=== PATIENT | male | born 1960 | race Caucasian/White ===

== ENCOUNTER 2017-11-21 13:59 | Observation (INO) | payer SELFPAY ==
[~2017-11-21] VITALS: Ht 177.8 cm; Wt 80.0 kg
--- NOTE | 2017-11-21 14:57 | PD ---
HPI Chief Complaint: Altered mental Time Seen by Provider: 14:49 Travel History International Travel<30 days: No Contact w/Intl Traveler<30days: No History of Present Illness HPI Patient is a 57-year-old male presents emergency department alcohol intoxication and altered mental status. According to EMS he was found behind a garbage dumpster altered by a passerby and they called 9 1. Patient's history is extremely limited by his level of intoxication on arrival. Later during his ER course the patient has started to sober and there is I can tell he recently came down from [place] and is currently living on the streets. Apparently has family in town and is trying to reconnect with them. He states he was drinking but does not know how he ended up behind a dumpster last night [facility] Past Medical History Medical History: Unable to Obtain Past Surgical History Surgical History: Unable to Obtain Social History Alcohol Use: Yes Tobacco Use: Yes Substance Use: Yes Allergies-Medications (Allergen,Severity, Reaction): Coded Allergies: No Known Allergies (Unverified , 11/21/17) Review of Systems ROS Limitations: Intoxication Physical Exam Exam Limitations: Intoxication Narrative GENERAL: Well-developed well-nourished, fairly well kempt in no obvious distress , heavily intoxicated SKIN: Focused skin assessment warm/dry. HEAD: Atraumatic. Normocephalic. EYES: Pupils equal and round. No scleral icterus. No injection or drainage. ENT: No nasal bleeding or discharge. Mucous membranes pink and moist. NECK: Trachea midline. No JVD. CARDIOVASCULAR: Regular rate and rhythm. No murmur appreciated. RESPIRATORY: No accessory muscle use. Clear to auscultation. Breath sounds equal bilaterally. GASTROINTESTINAL: Abdomen soft, non-tender, nondistended. Hepatic and splenic margins not palpable. MUSCULOSKELETAL: No obvious deformities. No clubbing. No cyanosis. No edema. NEUROLOGICAL: Awake and alert. Very slurred speech, moving all 4 extremities. PSYCHIATRIC: Unable to assess Data Data Last Documented VS Vital Signs Date Time Temp Pulse Resp B/P (MAP) Pulse Ox O2 Delivery O2 Flow Rate FiO2 11/21/17 17:46 94 18 180/101 (127) 93 Nasal Cannula 2.00 11/21/17 14:58 98.2 Orders Orders Electrocardiogram (11/21/17 14:53) Ammonia (11/21/17 14:53) Complete Blood Count With Diff (11/21/17 14:53) Comprehensive Metabolic Panel (11/21/17 14:53) Creatine Kinase (Cpk) (11/21/17 14:53) Prothrombin Time / Inr (Pt) (11/21/17 14:53) Act Partial Throm Time (Ptt) (11/21/17 14:53) Troponin I (11/21/17 14:53) Thyroid Stimulating Hormone (11/21/17 14:53) Urinalysis - C+S If Indicated (11/21/17 14:53) Lactic Acid Sepsis Protocol (11/21/17 14:53) Blood Culture (11/21/17 14:53) Chest, Single Ap (11/21/17 14:53) Blood Glucose (11/21/17 14:53) Ecg Monitoring (11/21/17 14:53) Iv Access Insert/Monitor (11/21/17 14:53) Oximetry (11/21/17 14:53) Drug Screen, Random Urine (11/21/17 14:53) Alcohol (Ethanol) (11/21/17 14:53) CKMB (11/21/17 15:05) CKMB% (11/21/17 15:05) Troponin I (11/21/17 17:34) Electrocardiogram (11/21/17 ) Sodium Chlor 0.9% 1000 Ml Inj (Ns 1000 M (11/21/17 18:30) Aspirin Chew (Aspirin Chew) (11/21/17 18:30) Admit Order (Ed Use Only) (11/21/17 ) Place In Observation (11/21/17 ) Vital Signs (Adult) Q4H (11/21/17 18:20) Dials Supervisor / Telemetry .CONTINUOUS (11/21/17 18:20) Diet Heart Healthy (11/21/17 Dinner) Sodium Chlor 0.9% 1000 Ml Inj (Ns 1000 M (11/21/17 18:20) Sodium Chloride 0.9% Flush (Ns Flush) (11/21/17 18:30) Sodium Chloride 0.9% Flush (Ns Flush) (11/21/17 21:00) Ondansetron Inj (Zofran Inj) (11/21/17 18:30) Creatine Kinase (Cpk) (11/21/17 21:00) Creatine Kinase (Cpk) (11/22/17 03:00) Troponin I (11/21/17 21:00) Troponin I (11/22/17 03:00) Electrocardiogram (11/21/17 21:00) Electrocardiogram (11/22/17 03:00) Enoxaparin Inj (Lovenox Inj) (11/21/17 21:00) Scd Bilateral/Knee High BRIAN.BID (11/21/17 18:20) Naloxone Inj (Narcan Inj) (11/21/17 18:30) Magnesium Hydroxide Liq (Milk Of Magnesi (11/21/17 18:30) Thiamine (Vit B1) (Vitamin B1) (11/22/17 09:00) Folic Acid (Folate) (11/22/17 09:00) Labs Laboratory Tests Test 11/21/17 15:05 11/21/17 17:35 White Blood Count 10.6 TH/MM3 Red Blood Count 4.56 MIL/MM3 Hemoglobin 14.3 GM/DL Hematocrit 41.9 % Mean Corpuscular Volume 91.8 FL Mean Corpuscular Hemoglobin 31.4 PG Mean Corpuscular Hemoglobin Concent 34.2 % Red Cell Distribution Width 14.6 % Platelet Count 288 TH/MM3 Mean Platelet Volume 6.6 FL Neutrophils (%) (Auto) 76.1 % Lymphocytes (%) (Auto) 14.8 % Monocytes (%) (Auto) 7.3 % Eosinophils (%) (Auto) 1.6 % Basophils (%) (Auto) 0.2 % Neutrophils # (Auto) 8.1 TH/MM3 Lymphocytes # (Auto) 1.6 TH/MM3 Monocytes # (Auto) 0.8 TH/MM3 Eosinophils # (Auto) 0.2 TH/MM3 Basophils # (Auto) 0.0 TH/MM3 CBC Comment DIFF FINAL Differential Comment Prothrombin Time 9.6 SEC Prothromb Time International Ratio 0.9 RATIO Activated Partial Thromboplast Time 26.6 SEC Urine Color LIGHT-YELLOW Urine Turbidity CLEAR Urine pH 5.5 Urine Specific [place] 1.004 Urine Protein NEG mg/dL Urine Glucose (UA) NEG mg/dL Urine Ketones NEG mg/dL Urine Occult Blood NEG Urine Nitrite NEG Urine Bilirubin NEG Urine Urobilinogen LESS THAN 2.0 MG/DL Urine Leukocyte Esterase NEG Urine RBC 1 /hpf Urine WBC LESS THAN 1 /hpf Microscopic Urinalysis Comment CATH-CULT NOT IND Blood Urea Nitrogen 8 MG/DL Creatinine 0.83 MG/DL Random Glucose 132 MG/DL Total Protein 7.7 GM/DL Albumin 4.1 GM/DL Calcium Level 8.6 MG/DL Alkaline Phosphatase 80 U/L Aspartate Amino Transf (AST/SGOT) 50 U/L Alanine Aminotransferase (ALT/SGPT) 44 U/L Total Bilirubin 0.3 MG/DL Sodium Level 143 MEQ/L Potassium Level 3.8 MEQ/L Chloride Level 106 MEQ/L Carbon Dioxide Level 23.8 MEQ/L Anion Gap 13 MEQ/L Estimat Glomerular Filtration Rate 95 ML/MIN Lactic Acid Level 2.3 mmol/L Ammonia 27 MCMOL/L Total Creatine Kinase 1210 U/L Creatine Kinase MB 6.9 NG/ML Creatine Kinase MB % 0.6 % Troponin I 0.18 NG/ML 0.19 NG/ML Thyroid Stimulating Hormone 3rd Gen 0.547 uIU/ML Urine Opiates Screen NEG Urine Barbiturates Screen NEG Urine Amphetamines Screen NEG Urine Benzodiazepines Screen POS Urine Cocaine Screen POS Urine Cannabinoids Screen NEG Ethyl Alcohol Level 415 MG/DL MDM Medical Decision Making Medical Screen Exam Complete: Yes Emergency Medical Condition: Yes Differential Diagnosis Altered mental status, intoxication, head injury, electrolyte abnormality, arrhythmia peer Narrative Course Patient was roomed in the emergency department, because of his altered mental status appears to be his alcohol, I have requested a CT scan of the head but the patient is declining this on multiple attempts. He is beginning to sober it appears he has recently arrived from [place] and is currently living on the streets. He is fairly well kempt and it appears that he is just become homeless. On workup of his altered mental status he does have an elevated troponin of 0.18. Patient does have cocaine positive urine. He states he had a little chest pain the other day but did not think much of it. His history is significantly limited by his level of intoxication. I recommended to him stay in the hospital and he is agreeable. Aspirin and normal saline were given in the emergency department. Discussed with Dr. Luna. Diagnosis Primary Impression: Elevated troponin Additional Impressions: Rhabdomyolysis Cocaine abuse Alcohol intoxication Admitting Information Admitting Physician Requests: Observation Condition: Stable Josh Purvis MD Nov 21, 2017 14:57
[2017-11-21 14:58] VITALS: BP 144/74; PULSE 94; RESP 24; TEMP 98.2; O2SAT 93
--- NOTE | 2017-11-21 15:33 | RADRPT ---
EXAM DATE/TIME: 11/21/2017 15:13 [place] COMPARISON: No previous studies available for comparison. INDICATIONS : ETOH- Shortness of breath. MEDICAL HISTORY : Unobtainable. SURGICAL HISTORY : Unobtainable. ENCOUNTER: Initial ACUITY: 1 day PAIN SCORE: Non-responsive. LOCATION: Bilateral chest FINDINGS: Bibasilar parenchymal changes with some consolidation on the right. The heart and pulmonary vasculari ty are normal. The portion of the bony skeleton visualized is unremarkable. CONCLUSION: Parenchymal changes on the right suspicious for an inflammatory process Yuan Bryan MD FACR on November 21, 2017 at 15:29 Board Certified Radiologist. This report was verified electronically.
[2017-11-21 15:44] LABS: LACTIC ACID SEPSIS PROTOCOL 2.3 mmol/L (0.4-2.0)
[2017-11-21 15:50] LABS: AUTOMATED NEUTROPHIL # 8.1 TH/MM3 (1.8-7.7); BASOPHIL % 0.2 % (0.0-2.0); EOSINOPHIL # 0.2 TH/MM3 (0-0.4); EOSINOPHIL % 1.6 % (0.0-4.0); HEMATOCRIT 41.9 % (39.0-51.0); HEMOGLOBIN 14.3 GM/DL (13.0-17.0); LYMPH % 14.8 % (9.0-44.0); LYMPHOCYTE # 1.6 TH/MM3 (1.0-4.8); MEAN CELL VOLUME 91.8 FL (80.0-100.0); MEAN CORPUSCULAR HEMOGLOBIN 31.4 PG (27.0-34.0); MEAN CORPUSCULAR HGB CONC 34.2 % (32.0-36.0); MEAN PLATELET VOLUME 6.6 FL (7.0-11.0); MONO % 7.3 % (0.0-8.0); MONOCYTE # 0.8 TH/MM3 (0-0.9); NEUT % 76.1 % (16.0-70.0); PLATELET COUNT 288 TH/MM3 (150-450); RED BLOOD COUNT 4.56 MIL/MM3 (4.50-5.90); RED CELL DISTRIBUTION WIDTH 14.6 % (11.6-17.2); WHITE BLOOD COUNT 10.6 TH/MM3 (4.0-11.0)
[2017-11-21 15:56] LABS: BILIRUBIN, URINE NEG (NEG); BLOOD, URINE NEG (NEG); GLUCOSE,URINE NEG (NEG); KETONE, URINE NEG (NEG); NITRITE,URINE NEG (NEG); PH, URINE 5.5 (5.0-8.5); URINE COLOR LIGHT-YELLOW (YELLW/STRAW); URINE LEUKOCYTE ESTERASE NEG (NEG)
[2017-11-21 15:57] LABS: INTERNATIONAL NORMALIZED RATIO 0.9 RATIO; PROTHROMBIN TIME - PATIENT 9.6 SEC (9.8-11.6)
[2017-11-21 16:07] LABS: ALBUMIN 4.1 GM/DL (3.4-5.0); AST (GOT) 50 U/L (15-37); BICARBONATE 23.8 MEQ/L (21.0-32.0); BLOOD UREA NITROGEN 8 MG/DL (7-18); CALCIUM 8.6 MG/DL (8.5-10.1); CHLORIDE 106 MEQ/L (98-107); CREATININE 0.83 MG/DL (0.60-1.30); GLOMERULAR FILTRATION RATE 95 ML/MIN (>89); GLUCOSE,RANDOM 132 MG/DL (74-106); SODIUM (NA) 143 MEQ/L (136-145)
[2017-11-21 16:22] LABS: ALKALINE PHOSPHATASE 80 U/L (45-117); ALT (GPT) 44 U/L (12-78); TOTAL BILIRUBIN ADULT 0.3 MG/DL (0.2-1.0); TOTAL PROTEIN 7.7 GM/DL (6.4-8.2); TROPONIN I 0.18 NG/ML (0.02-0.05)
[2017-11-21 17:46] VITALS: BP 180/101; PULSE 94; RESP 18; O2SAT 93
[2017-11-21] MEDS ORDERED: SODIUM CHLOR 0.9% 1000 ML INJ 1,000 ML IV ONE (18:30)
[2017-11-21] MEDS ORDERED: NALOXONE HCL 0.4 MG/ML AMP IV PUSH PRN (18:30)
[2017-11-21] MEDS ORDERED: MAGNESIUM HYDROXIDE SUSP 30 ML CUP PO PRN (18:30)
[2017-11-21] MEDS ORDERED: SODIUM CHLORIDE 0.9% FLUSH 10 ML FLUSH IV FLUSH PRN (18:30)
[2017-11-21] MEDS ORDERED: ONDANSETRON HCL 4 MG/2 ML VIAL IVP PRN (18:30)
[2017-11-21] MEDS ORDERED: ASPIRIN 81 MG CHEW TAB CHEW ONE (18:30)
--- NOTE | 2017-11-21 18:46 | HHI.HP ---
[facility] Unknown Admission Diagnosis Elevated Troponin. Diagnoses: (1) Alcohol intoxication Diagnosis: Principal (2) Rhabdomyolysis Diagnosis: Principal (3) Elevated troponin Diagnosis: Principal (4) Cocaine abuse Diagnosis: Principal Travel History International Travel<30 Days: No Contact w/Intl Traveler <30 Da: No Traveled to Known Affected Are: No History of Present Illness Mr. Burns is a 57-year-old male. He came into the hospital intoxicated. Lab testing shows that he is also positive for cocaine. Further blood workup shows an elevated troponin. The patient denies any chest pain. Lactic acidosis is present. Etiology for his lactic acidosis and rhabdomyolysis may be related to his degree of intoxication but he could have also been following. Elevated troponin is likely a false elevation and not related to cardiac etiology, however the enzymes will be trended. When patient is seen he is not complaining of any specific problem. He is somewhat inebriated and not in good condition to discharge at this point anyhow. Review of Systems ROS Limitations: Intoxication, Altered Mental Status Constitutional: DENIES: Fatigue, Fever, Chills Eyes: DENIES: Blurred vision, Diplopia, Eye inflammation Ears, nose, mouth, throat: DENIES: Tinnitus, Hearing loss, Vertigo Respiratory: DENIES: Cough, Wheezing, Shortness of breath Cardiovascular: DENIES: Chest pain, Palpitations, Syncope Gastrointestinal: DENIES: Abdominal pain, Black stools Musculoskeletal: DENIES: Joint pain, Muscle aches, Stiffness Integumentary: DENIES: Abnormal pigmentation, Nail changes, Pruritus, Rash Hematologic/lymphatic: DENIES: Bruising, Lymphadenopathy Immunologic/allergic: DENIES: Eczema, Urticaria Neurologic: DENIES: Abnormal gait, Headache, Paresthesias Psychiatric: DENIES: Anxiety, Confusion, Hallucinations Past Family Social History Past Medical History Patient denies any past medical history, he says he takes no medications History of alcohol abuse History of drug abuse Past Surgical History No previous history of surgeries, per patient Reported Medications None Allergies: Coded Allergies: No Known Allergies (Unverified , 11/21/17) Family History Coronary artery disease in patient's father Social History Nicotine abuse Alcohol abuse Cocaine abuse Physical Exam Vital Signs Vital Signs Date Time Temp Pulse Resp B/P (MAP) Pulse Ox O2 Delivery O2 Flow Rate FiO2 11/21/17 17:46 94 18 180/101 (127) 93 Nasal Cannula 2.00 11/21/17 14:58 98.2 94 24 144/74 (97) 93 Nasal Cannula 2.00 11/21/17 14:58 88 Room Air Physical Exam GENERAL: NAD, A&Ox3, inebriated HEAD: Normocephalic. NECK: Supple, trachea midline. No lymphadenopathy. EYES: No scleral icterus. No injection or drainage. CARDIOVASCULAR: Regular rate and rhythm without murmurs, gallops, or rubs. RESPIRATORY: Breath sounds equal bilaterally. No accessory muscle use. GASTROINTESTINAL: Abdomen soft, non-tender, nondistended. MUSCULOSKELETAL: No cyanosis, or edema. SKIN: Warm and dry. NEURO: No focal neurological deficitis. Laboratory Laboratory Tests Test 11/21/17 15:05 11/21/17 17:35 White Blood Count 10.6 Red Blood Count 4.56 Hemoglobin 14.3 Hematocrit 41.9 Mean Corpuscular Volume 91.8 Mean Corpuscular Hemoglobin 31.4 Mean Corpuscular Hemoglobin Concent 34.2 Red Cell Distribution Width 14.6 Platelet Count 288 Mean Platelet Volume 6.6 Neutrophils (%) (Auto) 76.1 Lymphocytes (%) (Auto) 14.8 Monocytes (%) (Auto) 7.3 Eosinophils (%) (Auto) 1.6 Basophils (%) (Auto) 0.2 Neutrophils # (Auto) 8.1 Lymphocytes # (Auto) 1.6 Monocytes # (Auto) 0.8 Eosinophils # (Auto) 0.2 Basophils # (Auto) 0.0 CBC Comment DIFF FINAL Differential Comment Prothrombin Time 9.6 Prothromb Time International Ratio 0.9 Activated Partial Thromboplast Time 26.6 Urine Color LIGHT-YELLOW Urine Turbidity CLEAR Urine pH 5.5 Urine Specific [place] 1.004 Urine Protein NEG Urine Glucose (UA) NEG Urine Ketones NEG Urine Occult Blood NEG Urine Nitrite NEG Urine Bilirubin NEG Urine Urobilinogen LESS THAN 2.0 Urine Leukocyte Esterase NEG Urine RBC 1 Urine WBC LESS THAN 1 Microscopic Urinalysis Comment CATH-CULT NOT IND Blood Urea Nitrogen 8 Creatinine 0.83 Random Glucose 132 Total Protein 7.7 Albumin 4.1 Calcium Level 8.6 Alkaline Phosphatase 80 Aspartate Amino Transf (AST/SGOT) 50 Alanine Aminotransferase (ALT/SGPT) 44 Total Bilirubin 0.3 Sodium Level 143 Potassium Level 3.8 Chloride Level 106 Carbon Dioxide Level 23.8 Anion Gap 13 Estimat Glomerular Filtration Rate 95 Lactic Acid Level 2.3 Ammonia 27 Total Creatine Kinase 1210 Creatine Kinase MB 6.9 Creatine Kinase MB % 0.6 Troponin I 0.18 0.19 Thyroid Stimulating Hormone 3rd Gen 0.547 Urine Opiates Screen NEG Urine Barbiturates Screen NEG Urine Amphetamines Screen NEG Urine Benzodiazepines Screen POS Urine Cocaine Screen POS Urine Cannabinoids Screen NEG Ethyl Alcohol Level 415 Date/Time Source Procedure Growth Status 11/21/17 15:05 Blood Peripheral Aerobic Blood Culture Pending Received 11/21/17 15:05 Blood Peripheral Anaerobic Blood Culture Pending Received Result Diagram: 11/21/17 1505 11/21/17 1505 Mustapha VTE Risk Assessment Caprini VTE Risk Assessment: No/Low Risk (score <= 1) Caprini Risk Assessment Model Point Value = 1 Point Value = 2 Point Value = 3 Point Value = 5 Age 41-60 Minor surgery BMI > 25 kg/m2 Swollen legs Varicose veins or History of unexplained or recurrent spontaneous Oral contraceptives or hormone replacement Sepsis (< 1 month) Serious lung disease, including pneumonia (< 1 month) Abnormal pulmonary function Acute myocardial infarction Congestive heart failure (< 1 month) History of inflammatory bowel disease Medical patient at bed rest Age 61-74 Arthroscopic surgery Major open surgery (> 45 min) Laparoscopic surgery (> 45 min) Malignancy Confined to bed (> 72 hours) Immobilizing plaster cast Central venous access Age >= 75 History of VTE Family history of VTE Factor V Leiden Prothrombin [id number] Lupus anticoagulant Anticardiolipin antibodies Elevated serum homocysteine Heparin-induced thrombocytopenia Other congenital or acquired thrombophilia Stroke (< 1 month) Elective arthroplasty Hip, pelvis, or leg fracture Acute spinal cord injury (< 1 month) Prophylaxis Regimen Total Risk Factor Score Risk Level Prophylaxis Regimen 0-1 Low Early ambulation 2 Moderate Order ONE of the following: *Sequential Compression Device (SCD) *Heparin 5000 units SQ BID 3-4 Higher Order ONE of the following medications: *Heparin 5000 units SQ TID *Enoxaparin/Lovenox 40 mg SQ daily (WT < 150 kg, CrCl > 30 mL/min) *Enoxaparin/Lovenox 30 mg SQ daily (WT < 150 kg, CrCl > 10-29 mL/min) *Enoxaparin/Lovenox 30 mg SQ BID (WT < 150 kg, CrCl > 30 mL/min) AND/OR *Sequential Compression Device (SCD) 5 or more Highest Order ONE of the following medications: *Heparin 5000 units SQ TID (Preferred with Epidurals) *Enoxaparin/Lovenox 40 mg SQ daily (WT < 150 kg, CrCl > 30 mL/min) *Enoxaparin/Lovenox 30 mg SQ daily (WT < 150 kg, CrCl > 10-29 mL/min) *Enoxaparin/Lovenox 30 mg SQ BID (WT < 150 kg, CrCl > 30 mL/min) AND *Sequential Compression Device (SCD) Assessment and Plan Problem List: (1) Cocaine abuse ICD Code: F14.10 - Cocaine abuse, uncomplicated (2) Elevated troponin ICD Code: R74.8 - Abnormal levels of other serum enzymes (3) Rhabdomyolysis ICD Code: M62.82 - Rhabdomyolysis (4) Alcohol intoxication ICD Code: F10.929 - Alcohol use, unspecified with intoxication, unspecified Assessment and Plan 57-year-old male admitted secondary to rhabdomyolysis in alcohol toxicity with elevated troponin Elevated troponin Follow troponin If a downward trend is present no cardiac workup needed If an upward trend is present pursue further cardiac workup and consult cardiology Rhabdomyolysis Lactic acidosis Etiology is from alcohol versus fall, patient reports no pain of trauma IV hydration overnight Re-evaluate CK in a.m. Cocaine abuse Nicotine abuse Alcohol abuse Alcohol intoxication Folic acid Thiamine Not a good candidate for NicoDerm at this point Follow clinically Avoid beta blockers Monitor for delirium tremens DVT prophylaxis Cristino Peraza MD Nov 21, 2017 18:46
[2017-11-21 19:27] VITALS: BP 151/84; PULSE 85; RESP 16; O2SAT 95
[2017-11-21] MEDS: SODIUM CHLOR 0.9% 1000 ML INJ 1,000 ML IV SCH (20:49)
[2017-11-21 21:00] VITALS: BP 137/69; PULSE 88; RESP 19; TEMP 96.4; O2SAT 92
[2017-11-21] MEDS ORDERED: SODIUM CHLORIDE 0.9% FLUSH 10 ML FLUSH IV FLUSH SCH (21:00)
[2017-11-21] MEDS ORDERED: ENOXAPARIN SODIUM 40 MG/0.4 ML SYRINGE SQ SCH (21:00)
[2017-11-21 22:51] LABS: TROPONIN I 0.19 NG/ML (0.02-0.05)
[2017-11-22 00:14] VITALS: BP 162/80; PULSE 91; RESP 18; TEMP 96.2; O2SAT 93
[2017-11-22 04:00] VITALS: PULSE 81
[2017-11-22 04:29] VITALS: BP 143/63; PULSE 80; RESP 18; TEMP 98.6; O2SAT 93
[2017-11-22] MEDS: SODIUM CHLOR 0.9% 1000 ML INJ 1,000 ML IV SCH (04:33)
[2017-11-22 04:47] LABS: TROPONIN I 0.21 NG/ML (0.02-0.05)
[2017-11-22 07:34] VITALS: PULSE 67
[2017-11-22 07:43] VITALS: BP 157/83; PULSE 73; RESP 18; TEMP 97.7; O2SAT 93
[2017-11-22] MEDS ORDERED: THIAMINE HCL 100 MG TAB PO SCH (09:00)
[2017-11-22] MEDS ORDERED: FOLIC ACID 1 MG TAB PO SCH (09:00)
[2017-11-22] MEDS ORDERED: THIAMINE HCL 100 MG TAB PO ONE (09:15)
[2017-11-22] MEDS ORDERED: THIA100 PO (09:29)
--- NOTE | 2017-11-22 09:29 | HHI.DCPOC ---
Discharge Care Plan Diagnosis: (1) Alcohol intoxication (2) Cocaine abuse (3) Rhabdomyolysis Goals to Promote Your Health * To prevent worsening of your condition and complications * To maintain your health at the optimal level Directions to Meet Your Goals Take your medications as prescribed Follow your dietary instruction Follow activity as directed Keep your appointments as scheduled Take your immunizations and boosters as scheduled If your symptoms worsen call your PCP, if no PCP go to Urgent Care Center or Emergency Room Smoking is Dangerous to Your Health. Avoid second hand smoke Call the 24-hour hour crisis hotline for domestic abuse at [facility] Dorsey PA-C Nov 22, 2017 9:29 am
--- NOTE | 2017-11-22 09:30 | HHI.PR ---
Subjective Remarks Follow up for intoxication, cocaine use, elevated CPK and troponin. The patient is seen ambulating the hallways this morning, requesting to be discharged. He does not have recollection leading up to his admission. He states he remembers getting a bottle of gin, and probably got a 2nd bottle, then probably "over did it" with his drinking. He admits to using cocaine at some point, states his friend had some and "it tasted like sugar". He admits to xanax use 1 week ago. He denies any chest pain, palpitations, shortness of breath, muscle aches, or abdominal complaints. He is tolerating oral intake. He wants to go home. He states his mom will come pick him up. He is awake, alert, oriented to person, hospital in [place], October 2017, and president Kapil. He reports intermittent sobriety throughout his adult life, but started drinking again since he arrived from [place]. Thoroughly discussed cessation from all alcohol and drugs, patient says he is going to try to cut back. Denies any current withdrawal or tremors. Objective Vitals Vital Signs Date Time Temp Pulse Resp B/P (MAP) Pulse Ox O2 Delivery O2 Flow Rate FiO2 11/22/17 07:43 97.7 73 18 157/83 (107) 93 11/22/17 07:34 67 11/22/17 04:29 98.6 80 18 143/63 (89) 93 11/22/17 04:00 81 11/22/17 00:14 96.2 91 18 162/80 (107) 93 11/21/17 21:00 96.4 88 19 137/69 (91) 92 11/21/17 20:11 11/21/17 19:27 85 16 151/84 (106) 95 Nasal Cannula 2.00 11/21/17 17:46 94 18 180/101 (127) 93 Nasal Cannula 2.00 11/21/17 14:58 98.2 94 24 144/74 (97) 93 Nasal Cannula 2.00 11/21/17 14:58 88 Room Air I/O 11/21/17 11/21/17 11/21/17 11/22/17 11/22/17 11/22/17 07:00 15:00 23:00 07:00 15:00 23:00 Intake Total 0 ml Output Total 600 ml Balance -600 ml Intake Oral 0 ml Output Urine Total 600 ml # Bowel Movements 4 Result Diagram: 11/21/17 1505 11/21/17 1505 Imaging Last Impressions Chest X-Ray 11/21/17 1453 Signed Impressions: Service Date/Time: Tuesday, November 21, 2017 15:13 - CONCLUSION: Parenchymal changes on the right suspicious for an inflammatory process Yuan Bryan MD FACR Objective Remarks GENERAL: Well-nourished, well-developed middle aged male patient in NAD. SKIN: Warm and dry. No rash. HEENT: Normocephalic. Atraumatic.Pupils equal and round. Mucous membranes pink and moist. CARDIOVASCULAR: Regular rate and rhythm. No murmur appreciated. RESPIRATORY: No accessory muscle use. Clear to auscultation. Breath sounds equal bilaterally. GASTROINTESTINAL: Abdomen soft, non-tender, nondistended. Normoactive bowel sounds x4. MUSCULOSKELETAL: No obvious deformities. Extremities without clubbing, cyanosis , or edema. NEUROLOGICAL: Awake and alert. No obvious cranial nerve deficits. Motor grossly within normal limits. 5/5 muscle strength in bilateral upper and lower extremities. Normal speech. PSYCHIATRIC: Appropriate mood and affect; insight and judgment normal. A/P Problem List: (1) Cocaine abuse ICD Code: F14.10 - Cocaine abuse, uncomplicated (2) Elevated troponin ICD Code: R74.8 - Abnormal levels of other serum enzymes (3) Rhabdomyolysis ICD Code: M62.82 - Rhabdomyolysis (4) Alcohol intoxication ICD Code: F10.929 - Alcohol use, unspecified with intoxication, unspecified Assessment and Plan 49-year-old male with history of alcohol abuse presents intoxicated with positive cocaine and benzos, admitted to observation secondary to intoxication and unsafe discharge. Elevated troponin/CPK, Mild Rhabdomyolysis, Lactic Acidosis: Patient with no complaints of chest pain. CK-MB% wnl. Likely secondary to intoxication and cocaine abuse. -Given IV fluid hydration -CK trended down, 1210 --> 869 -Encouraged to continue oral hydration after discharge Alcohol Abuse/Polysubstance Abuse: patient presented intoxicated with etoh level 415, and UDS positive for cocaine and benzos -counseled on cessation from all drugs and alcohol -thiamine/folate/MV -monitor for withdrawal -librium prn DVT Prophylaxis: Lovenox Discharge Planning Discharge patient to home Condition on discharge: Stable Regular Diet as tolerated Ad Desirae activity Rx written: thiamine Follow-up with primary care physician and drug/alcohol rehab at [facility] PA-[facility] Nov 22, 2017 9:30 am
--- NOTE | 2017-11-23 00:25 | EKG ---
Date Performed: 11/21/2017 Time Performed: 17:51:02 PTAGE: 57 years EKG: Sinus rhythm INCOMPLETE RIGHT BUNDLE BRANCH BLOCK BORDERLINE ECG PREVIOUS TRACING : 11/21/2017 15.10 DOCTOR: Gertrude White Interpretating Date/Time 11/23/2017 00:12:55
--- NOTE | 2017-11-23 00:29 | EKG ---
Date Performed: 11/21/2017 Time Performed: 15:10:09 PTAGE: 57 years EKG: Sinus rhythm INCOMPLETE RIGHT BUNDLE BRANCH BLOCK BORDERLINE ECG NO PREVIOUS TRACING DOCTOR: Gertrude White Interpretating Date/Time 11/23/2017 00:14:36
== END 2017-11-22 10:04 | disposition home or self-care (01) ==
LOC: NEPC 13:59 → NEDA 18:23 → NEPHCDU 20:24
PROVIDERS: ADMIT Internal Medicine; ATTEND Internal Medicine
DX: F10.129 Alcohol abuse with intoxication, unspecified (principal); M62.82 Rhabdomyolysis; R74.8 Abnormal levels of other serum enzymes; I45.10 Unspecified right bundle-branch block; F14.10 Cocaine abuse, uncomplicated; E87.2 Acidosis; F17.200 Nicotine dependence, unspecified, uncomplicated; Y90.8 Blood alcohol level of 240 mg/100 ml or more; Z59.0 Homelessness
CPT/HCPCS: 71045; 80053; 80307; 81001; 82140; 82550; 82552; 83605; 84443; 84484; 85025; 85610; 85730; 87040; 93005; 96361; 96374; 99285; G0378; J1650; J2405; J7030

== ENCOUNTER 2017-11-25 17:02 | Inpatient (IN) | payer SELFPAY ==
[~2017-11-25] VITALS: Ht 174 cm; Wt 85.2 kg
[~2017-11-25 17:02] MED LIST: THIA100 PO
--- NOTE | 2017-11-25 17:18 | PD ---
HPI Chief Complaint: Skin Problem Time Seen by Provider: 17:17 Travel History International Travel<30 days: No Contact w/Intl Traveler<30days: No Traveled to known affect area: No History of Present Illness HPI 57-year-old male came to the emergency room brought by EMS as a De Jesus act. Patient is intoxicated. He was found on the ground intoxicated by the police. Patient while being picked up by the EMS mentioned that he was bitten by a cat 2 weeks ago on his right hand middle finger. Patient says he has been sober for 8 months but just drank today and drank one fifth of gin. The patient was hypoxic with oxygen saturation in the 80s. Heart rate was 105. Patient is moderately intoxicated and limited in giving history. He seems homeless. [facility] Past Medical History Narrative Medical List of his past medical, surgical, social and family history is reviewed from the nursing note. Blood Disorders: No Anxiety: Yes Depression: Yes Heart Rhythm Problems: No Cancer: No Cardiovascular Problems: Yes High Cholesterol: No Chest Pain: Yes Congestive Heart Failure: No Endocrine: No Genitourinary: Yes (FREQUENCY) Immune Disorder: No Musculoskeletal: No (RT WRIST) Neurologic: Yes (GRAND MAL SEIZURES) Psychiatric: Yes Reproductive: No Respiratory: No Social History Alcohol Use: Yes Tobacco Use: Yes Substance Use: Yes Allergies-Medications (Allergen,Severity, Reaction): Coded Allergies: Sulfa (Sulfonamide Antibiotics) (Verified Allergy, Severe, Hives, 11/26/17) Comments No known drug allergies Reported Meds & Prescriptions Reported Meds & Active Scripts Active No Active Prescriptions or Reported Medications Narrative Medication List of his home medications reviewed from the nursing note Review of Systems ROS Limitations: Intoxication Except as stated in HPI: all other systems reviewed are Neg Skin: Positive Rash Physical Exam Narrative GENERAL: Intoxicated, answering questions and following commands SKIN: Focused skin assessment warm/dry. Right hand middle finger on the dorsal aspect has a puncture wound with a swollen finger. The dorsum of the hand is swollen. Significant arthritis at the carpometacarpal junction with some ulnar deviation. Multiple scabs on both feet HEAD: Atraumatic. Normocephalic. EYES: Pupils equal and round. No scleral icterus. No injection or drainage. ENT: No nasal bleeding or discharge. Mucous membranes pink and moist. NECK: Trachea midline. No JVD. CARDIOVASCULAR: Regular rate and rhythm. No murmur appreciated. RESPIRATORY: No accessory muscle use. Coarse rhonchi bilaterally GASTROINTESTINAL: Abdomen soft, non-tender, nondistended. Hepatic and splenic margins not palpable. MUSCULOSKELETAL: No obvious deformities. No clubbing. No cyanosis. No edema. NEUROLOGICAL: Intoxicated. No obvious cranial nerve deficits. Motor grossly within normal limits. Slurred speech. PSYCHIATRIC: Appropriate mood and affect; insight and judgment normal. Data Data Last Documented VS Vital Signs Date Time Temp Pulse Resp B/P (MAP) Pulse Ox O2 Delivery O2 Flow Rate FiO2 11/25/17 19:28 104 18 159/95 (116) 95 Room Air 11/25/17 17:39 98.1 11/25/17 17:39 2.00 Orders Orders Sepsis Workup Initiated (11/25/17 ) Complete Blood Count With Diff (11/25/17 17:22) Comprehensive Metabolic Panel (11/25/17 17:22) Lactic Acid Sepsis Protocol (11/25/17 17:22) Urinalysis - C+S If Indicated (11/25/17 17:22) Blood Culture (11/25/17 17:22) Chest, Single Ap (11/25/17 17:22) Blood Glucose (11/25/17 17:22) Ecg Monitoring (11/25/17 17:22) Iv Access Insert/Monitor (11/25/17 17:22) Oximetry (11/25/17 17:22) Oxygen Administration (11/25/17 17:22) Sodium Chlor 0.9% 1000 Ml Inj (Ns 1000 M (11/25/17 17:22) Sodium Chlor 0.9% 1000 Ml Inj (Ns 1000 M (11/25/17 17:22) Sodium Chlor 0.9% 1000 Ml Inj (Ns 1000 M (11/25/17 17:22) Alcohol (Ethanol) (11/25/17 17:22) Hand, Complete (Oif0llp) (11/25/17 ) Ct Hand W Iv Contrast (11/25/17 ) Piperacil-Tazo 4.5 Gm Premix (Zosyn 4.5 (11/25/17 18:45) Vancomycin Inj (Vancomycin Inj) (11/25/17 18:45) Urine Culture (11/25/17 19:15) Iohexol 350 Inj (Omnipaque 350 Inj) (11/25/17 20:01) Admit Order (Ed Use Only) (11/25/17 20:10) Vancomycin Consult Pharmacy (Vancomycin (11/25/17 20:15) Cefepime Inj (Maxipime Inj) (11/26/17 09:00) Vital Signs (Adult) Q4H (11/25/17 20:09) Bedside Glucose BRIAN.CSUGAR (11/25/17 20:09) Intake + Output BRIAN.QSHIFT (11/25/17 20:09) Alcohol Withdrawal Asmt-Ciwa Q4HX18 (11/25/17 20:09) ^ Seizure Precautions (11/25/17 20:09) Folic Acid (Folate) (11/26/17 09:00) Thiamine (Vit B1) (Vitamin B1) (11/26/17 09:00) Multivitamins-Minerals Therap (Theragran (11/26/17 09:00) Consult Cm-Etoh Abuse Dc Plan (11/25/17 ) Flumazenil Inj (Romazicon Inj) (11/25/17 20:15) Lorazepam (Ativan) (11/25/17 20:15) Lorazepam Inj (Ativan Inj) (11/25/17 20:15) Lorazepam (Ativan) (11/25/17 20:15) Lorazepam Inj (Ativan Inj) (11/25/17 20:15) Lorazepam Inj (Ativan Inj) (11/25/17 20:15) Lorazepam Inj (Ativan Inj) (11/25/17 20:15) Haloperidol Inj (Haldol Inj) (11/25/17 20:15) Thiamine Inj (Thiamine Inj) (11/25/17 23:00) Admit To Inpatient (11/25/17 ) Vital Signs (Adult) Q4H (11/25/17 20:09) Activity Oob With Assistance (11/25/17 20:09) Oracle Application Consultant / Telemetry .CONTINUOUS (11/25/17 20:09) Intake + Output BRIAN.QSHIFT (11/25/17 20:09) Diet Regular Basic (11/26/17 Breakfast) Sodium Chlor 0.9% 1000 Ml Inj (Ns 1000 M (11/25/17 20:09) Sodium Chloride 0.9% Flush (Ns Flush) (11/25/17 20:15) Sodium Chloride 0.9% Flush (Ns Flush) (11/25/17 21:00) Ondansetron Inj (Zofran Inj) (11/25/17 20:15) Comprehensive Metabolic Panel (11/26/17 06:00) Complete Blood Count With Diff (11/26/17 06:00) Case Management Consult (11/25/17 20:09) Scd Bilateral/Knee High BRIAN.BID (11/25/17 20:09) Javier Bilateral/Knee High BRIAN.QSHIFT (11/25/17 20:12) Acetaminophen (Tylenol) (11/25/17 20:15) Oxycodone (Roxicodone) (11/25/17 20:15) Oxycodone (Roxicodone) (11/25/17 20:15) Docusate Sodium-Senna (Lucie-Colace) (11/25/17 21:00) Magnesium Hydroxide Liq (Milk Of Magnesi (11/25/17 20:15) Sennosides (Senokot) (11/25/17 20:15) Bisacodyl Supp (Dulcolax Supp) (11/25/17 20:15) Lactulose Liq (Lactulose Liq) (11/25/17 20:15) Inpatient Certification (11/25/17 ) Labs Laboratory Tests Test 11/25/17 18:00 11/25/17 19:15 White Blood Count 14.1 TH/MM3 Red Blood Count 4.46 MIL/MM3 Hemoglobin 13.9 GM/DL Hematocrit 40.5 % Mean Corpuscular Volume 90.8 FL Mean Corpuscular Hemoglobin 31.1 PG Mean Corpuscular Hemoglobin Concent 34.3 % Red Cell Distribution Width 14.4 % Platelet Count 199 TH/MM3 Mean Platelet Volume 6.7 FL Neutrophils (%) (Auto) 93.4 % Lymphocytes (%) (Auto) 2.5 % Monocytes (%) (Auto) 4.0 % Eosinophils (%) (Auto) 0.0 % Basophils (%) (Auto) 0.1 % Neutrophils # (Auto) 13.1 TH/MM3 Lymphocytes # (Auto) 0.4 TH/MM3 Monocytes # (Auto) 0.6 TH/MM3 Eosinophils # (Auto) 0.0 TH/MM3 Basophils # (Auto) 0.0 TH/MM3 CBC Comment DIFF FINAL Differential Comment Blood Urea Nitrogen 21 MG/DL Creatinine 0.93 MG/DL Random Glucose 261 MG/DL Total Protein 7.5 GM/DL Albumin 3.5 GM/DL Calcium Level 8.0 MG/DL Alkaline Phosphatase 80 U/L Aspartate Amino Transf (AST/SGOT) 74 U/L Alanine Aminotransferase (ALT/SGPT) 50 U/L Total Bilirubin 0.4 MG/DL Sodium Level 141 MEQ/L Potassium Level 3.8 MEQ/L Chloride Level 101 MEQ/L Carbon Dioxide Level 25.2 MEQ/L Anion Gap 15 MEQ/L Estimat Glomerular Filtration Rate 83 ML/MIN Lactic Acid Level 4.8 mmol/L Ethyl Alcohol Level 363 MG/DL Urine Color YELLOW Urine Turbidity HAZY Urine pH 5.5 Urine Specific [place] 1.020 Urine Protein 100 mg/dL Urine Glucose (UA) 300 mg/dL Urine Ketones 40 mg/dL Urine Occult Blood LARGE Urine Nitrite NEG Urine Bilirubin NEG Urine Urobilinogen LESS THAN 2.0 MG/DL Urine Leukocyte Esterase NEG Urine RBC LESS THAN 1 /hpf Urine WBC 4 /hpf Urine Bacteria OCC /hpf Urine Hyaline Casts 10 /lpf Urine Mucus FEW /lpf Microscopic Urinalysis Comment CATH-CULTURE IND MDM Medical Decision Making Medical Screen Exam Complete: Yes Emergency Medical Condition: Yes Medical Record Reviewed: Yes Interpretation(s) Twelve-lead EKG was reviewed by me. Normal sinus rhythm, left axis deviation, right bundle branch block, tachycardia. Heart rate of 101 bpm. Differential Diagnosis Sepsis, pneumonia, cellulitis, acute alcohol intoxication Narrative Course 7:12 PM patient was given IV fluid bolus as per sepsis protocol. Chest x-ray is suggestive of right inferior lobe infiltrate. X-ray of the hand is negative for any osteomyelitis. CBC shows leukocytosis with left shift. Awaiting for chemistry and lactic acid to come back. It is getting IV Zosyn and vancomycin as per sepsis protocol. He will require admission eventually. Critical Care Narrative Aggregate critical care time was 45 minutes. Time to perform other separately billable procedures was not included in the critical care time. My time did not include minutes spent treating any other patients simultaneously or on activities that did not directly contribute to the patient's treatment. The services I provided to this patient were to treat and/or prevent clinically significant deterioration that could result in: Sepsis, sepsis protocol I provided critical care services requiring my management, as noted below: Chart data review, documentation time, medication orders and management, vital sign assessments/reviewing monitor data, ordering and reviewing lab tests, ordering and interpreting/reviewing x-rays and diagnostic studies, care of the patient and discussion of the patient with the admitting physicians. Procedures EKG Prior to Arrival: No Diagnosis Primary Impression: Sepsis Qualified Codes: A41.9 - Sepsis, unspecified organism Additional Impressions: Pneumonia Qualified Codes: J18.1 - Lobar pneumonia, unspecified organism Alcohol intoxication Qualified Codes: F10.929 - Alcohol use, unspecified with intoxication, unspecified Cellulitis Qualified Codes: L03.113 - Cellulitis of right upper limb Cat bite Qualified Codes: W55.01XA - Bitten by cat, initial encounter Hypoxia Admitting Information Admitting Physician Requests: Admit Scripts No Active Prescriptions or Reported Meds Ayaan Yanes MD Nov 25, 2017 17:18
[2017-11-25] MEDS ORDERED: SODIUM CHLOR 0.9% 1000 ML INJ 400 ML IV ONE (17:22)
[2017-11-25] MEDS ORDERED: SODIUM CHLOR 0.9% 1000 ML INJ 1,000 ML IV ONE ×2 (17:22)
[2017-11-25 17:37] VITALS: BP 159/86; PULSE 106; RESP 24; TEMP 98.1; O2SAT 86
[2017-11-25 17:39] VITALS: BP 159/86; PULSE 106; RESP 24; TEMP 98.1; O2SAT 86
[2017-11-25 18:33] LABS: AUTOMATED NEUTROPHIL # 13.1 TH/MM3 (1.8-7.7); BASOPHIL % 0.1 % (0.0-2.0); HEMATOCRIT 40.5 % (39.0-51.0); HEMOGLOBIN 13.9 GM/DL (13.0-17.0); LYMPH % 2.5 % (9.0-44.0); LYMPHOCYTE # 0.4 TH/MM3 (1.0-4.8); MEAN CELL VOLUME 90.8 FL (80.0-100.0); MEAN CORPUSCULAR HEMOGLOBIN 31.1 PG (27.0-34.0); MEAN CORPUSCULAR HGB CONC 34.3 % (32.0-36.0); MEAN PLATELET VOLUME 6.7 FL (7.0-11.0); MONOCYTE # 0.6 TH/MM3 (0-0.9); NEUT % 93.4 % (16.0-70.0); PLATELET COUNT 199 TH/MM3 (150-450); RED BLOOD COUNT 4.46 MIL/MM3 (4.50-5.90); RED CELL DISTRIBUTION WIDTH 14.4 % (11.6-17.2); WHITE BLOOD COUNT 14.1 TH/MM3 (4.0-11.0)
[2017-11-25] MEDS ORDERED: PIPERACIL-TAZO 4.5 GM PREMIX 100 ML IV ONE (18:45)
[2017-11-25] MEDS ORDERED: VANCOMYCIN INJ 1,000 MG in SODIUM CHLOR 0.9% 250 ML INJ 250 ML IV ONE (18:45)
[2017-11-25 18:51] LABS: ALT (GPT) 50 U/L (12-78)
--- NOTE | 2017-11-25 18:55 | RADRPT ---
EXAM DATE/TIME: 11/25/2017 18:19 [facility] COMPARISON: CHEST SINGLE AP, November 21, 2017, 15:13. INDICATIONS : ETOH- Shortness of breath. MEDICAL HISTORY : None. SURGICAL HISTORY : None. ENCOUNTER: Initial ACUITY: 1 day PAIN SCORE: Non-responsive. LOCATION: Bilateral chest FINDINGS: The heart size is normal. There is increased density at the right base. The left lung is clear. A sig nificant effusion is not seen. There is degenerative change at the right glenohumeral joint. CONCLUSION: Right base consolidation or atelectasis. Gal Gold MD on November 25, 2017 at 18:53 Board Certified Radiologist. This report was verified electronically.
--- NOTE | 2017-11-25 18:57 | RADRPT ---
EXAM DATE/TIME: 11/25/2017 18:21 [facility] COMPARISON: No previous studies available for comparison. INDICATIONS : Patient was drinking- pain post fall. MEDICAL HISTORY : None. SURGICAL HISTORY : None. ENCOUNTER: Initial ACUITY: 1 day PAIN SCORE: Non-responsive. LOCATION: Right Hand. FINDINGS: Three view examination of the right hand demonstrates no soft tissue swelling, dislocation, or fractu re. There is chronic cystic change at the carpal bones especially the scaphoid and lunate. Cystic c hanges seen of the distal radius. This hypertrophic change seen at the carpal bones and adjacent to t he distal ulna. There is joint space narrowing at the third MCP joint. Bony mineralization is normal . CONCLUSION: No acute abnormality is seen. There is chronic change as described above. Gal Gold MD on November 25, 2017 at 18:54 Board Certified Radiologist. This report was verified electronically.
[2017-11-25 19:18] LABS: ALBUMIN 3.5 GM/DL (3.4-5.0); ALKALINE PHOSPHATASE 80 U/L (45-117); AST (GOT) 74 U/L (15-37); BICARBONATE 25.2 MEQ/L (21.0-32.0); BLOOD UREA NITROGEN 21 MG/DL (7-18); CHLORIDE 101 MEQ/L (98-107); CREATININE 0.93 MG/DL (0.60-1.30); GLOMERULAR FILTRATION RATE 83 ML/MIN (>89); GLUCOSE,RANDOM 261 MG/DL (74-106); SODIUM (NA) 141 MEQ/L (136-145); TOTAL BILIRUBIN ADULT 0.4 MG/DL (0.2-1.0); TOTAL PROTEIN 7.5 GM/DL (6.4-8.2)
[2017-11-25 19:21] LABS: LACTIC ACID SEPSIS PROTOCOL 4.8 mmol/L (0.4-2.0)
[2017-11-25 19:28] VITALS: BP 159/95; PULSE 104; RESP 18; O2SAT 95
[2017-11-25 19:49] LABS: BACTERIA, URINE OCC /hpf; BILIRUBIN, URINE NEG (NEG); BLOOD, URINE LARGE (NEG); GLUCOSE,URINE 300 mg/dL (NEG); HYALINE CAST, URINE 10 /lpf (RARE); KETONE, URINE 40 mg/dL (NEG); MUCUS URINE FEW /lpf (OCC); NITRITE,URINE NEG (NEG); PH, URINE 5.5 (5.0-8.5); URINE COLOR YELLOW (YELLW/STRAW); URINE LEUKOCYTE ESTERASE NEG (NEG)
[2017-11-25] MEDS ORDERED: IOHEXOL 350 MG/ML 10 ML VIAL (for RAD DIAG) IVCONTRAST ONE (20:01)
[2017-11-25] MEDS ORDERED: LACTULOSE SYRUP 20 GM/30 ML CUP PO PRN (20:15)
[2017-11-25] MEDS ORDERED: LORazepam 2 MG/ML VIAL IV PUSH PRN ×4 (20:15)
[2017-11-25] MEDS ORDERED: FLUMAZENIL 0.5 MG/5 ML VIAL IV PUSH PRN (20:15)
[2017-11-25] MEDS ORDERED: SODIUM CHLORIDE 0.9% FLUSH 10 ML FLUSH IV FLUSH PRN (20:15)
[2017-11-25] MEDS ORDERED: HALOPERIDOL LACTATE 5 MG/ML AMP IM PRN (20:15)
[2017-11-25] MEDS ORDERED: ONDANSETRON HCL 4 MG/2 ML VIAL IVP PRN (20:15)
[2017-11-25] MEDS ORDERED: Vancomycin Consult Pharmacy 1 EA OTHER SCH (20:15)
[2017-11-25] MEDS ORDERED: BISACODYL 10 MG SUPP RECTAL PRN (20:15)
[2017-11-25] MEDS ORDERED: SENNOSIDES 8.6 MG TAB PO PRN (20:15)
[2017-11-25] MEDS ORDERED: LORazepam 2 MG TAB PO PRN (20:15)
[2017-11-25] MEDS ORDERED: ACETAMINOPHEN 325 MG TAB PO PRN (20:15)
[2017-11-25] MEDS ORDERED: LORazepam 1 MG TAB PO PRN (20:15)
[2017-11-25] MEDS ORDERED: MAGNESIUM HYDROXIDE SUSP 30 ML CUP PO PRN (20:15)
[2017-11-25] MEDS ORDERED: DEXTROSE 50% IN WATER 50 ML VIAL(D50) IV PUSH PRN (21:00)
[2017-11-25] MEDS ORDERED: GLUCAGON 1 MG/ML VIAL OTHER PRN (21:00)
[2017-11-25] MEDS: DOCUSATE SODIUM 50 MG/SENNA 8.6 MG TAB PO SCH (21:00)
--- NOTE | 2017-11-25 21:04 | HHI.HP ---
[facility] Service [facility] Primary Care Physician Unknown Admission Diagnosis sepsis, pneumonia, hypoxia, cellulitis, alcohol intoxication Diagnoses: (1) Sepsis Diagnosis: Principal (2) PNA (pneumonia) Diagnosis: Principal (3) Hypoxia Diagnosis: Principal (4) UTI (urinary tract infection) Diagnosis: Principal (5) Hyperglycemia Diagnosis: Principal (6) Alcohol abuse Diagnosis: Principal Travel History International Travel<30 Days: No Contact w/Intl Traveler <30 Da: No Traveled to Known Affected Are: No History of Present Illness This is a 57-year-old male with a PMH of Anxiety, Depression, Alcohol Abuse was brought to the ER by EMS under Grace's Act secondary to intoxication. Pt also notes being bitten by a cat to right hand approx 2 wks ago. Pt very poor historian in light of acute intoxication. On arrival, BP 159/86, HR 106, O2 sat 86% on RA, Afebrile. WBC 14.1. Chemistry unremarkable except for BUN 21, GFR 83, BS 261. Lactic Acid 4.8. CXR with right base consolidation. Hand X- ray with no acute findings. S/p Zosyn/Vanc in ER. Review of Systems Except as stated in HPI: all other systems reviewed are Neg ROS: 14 point review of systems otherwise negative. Past Family Social History Past Medical History PMH: Anxiety, Depression, Alcohol Abuse Past Surgical History PAST SURGICAL HISTORY: Right Wrist Surgery Allergies: Coded Allergies: No Known Allergies (Unverified , 11/25/17) Family History PAST FAMILY HISTORY: Reviewed. No h/o DM or CAD Social History PAST SOCIAL HISTORY: Positive for alcohol. Positive for tobacco and substance abuse. Physical Exam Vital Signs Vital Signs Date Time Temp Pulse Resp B/P (MAP) Pulse Ox O2 Delivery O2 Flow Rate FiO2 11/25/17 19:28 104 18 159/95 (116) 95 Room Air 11/25/17 17:39 24 11/25/17 17:39 98.1 106 24 159/86 (110) 86 Room Air 11/25/17 17:39 Nasal Cannula 2.00 11/25/17 17:39 86 Room Air 11/25/17 17:37 98.1 106 24 159/86 (110 86 Physical Exam PE: GENERAL: Middle-aged white male in no acute distress. Acutely intoxicated. HEENT: PERRLA, EOMI. No scleral icterus or conjunctival pallor. No lid lag or facial droop. CARDIOVASCULAR: Regular rate and rhythm. No obvious murmurs to auscultation. No chest tenderness to palpation. RESPIRATORY: No obvious rhonchi or wheezing. Clear to auscultation. Breath sounds equal bilaterally. GASTROINTESTINAL: Abdomen soft, non-tender, nondistended. BS normal. MUSCULOSKELETAL: Extremities without clubbing, cyanosis, or edema. No obvious deformities. Right hand third digit with swelling, erythema. NEUROLOGICAL: Awake, alert and oriented x4. No focal neurologic deficits. Moving both upper and lower extremities spontaneously. Laboratory Laboratory Tests Test 11/25/17 18:00 11/25/17 19:15 White Blood Count 14.1 Red Blood Count 4.46 Hemoglobin 13.9 Hematocrit 40.5 Mean Corpuscular Volume 90.8 Mean Corpuscular Hemoglobin 31.1 Mean Corpuscular Hemoglobin Concent 34.3 Red Cell Distribution Width 14.4 Platelet Count 199 Mean Platelet Volume 6.7 Neutrophils (%) (Auto) 93.4 Lymphocytes (%) (Auto) 2.5 Monocytes (%) (Auto) 4.0 Eosinophils (%) (Auto) 0.0 Basophils (%) (Auto) 0.1 Neutrophils # (Auto) 13.1 Lymphocytes # (Auto) 0.4 Monocytes # (Auto) 0.6 Eosinophils # (Auto) 0.0 Basophils # (Auto) 0.0 CBC Comment DIFF FINAL Differential Comment Blood Urea Nitrogen 21 Creatinine 0.93 Random Glucose 261 Total Protein 7.5 Albumin 3.5 Calcium Level 8.0 Alkaline Phosphatase 80 Aspartate Amino Transf (AST/SGOT) 74 Alanine Aminotransferase (ALT/SGPT) 50 Total Bilirubin 0.4 Sodium Level 141 Potassium Level 3.8 Chloride Level 101 Carbon Dioxide Level 25.2 Anion Gap 15 Estimat Glomerular Filtration Rate 83 Lactic Acid Level 4.8 Ethyl Alcohol Level 363 Urine Color YELLOW Urine Turbidity HAZY Urine pH 5.5 Urine Specific [place] 1.020 Urine Protein 100 Urine Glucose (UA) 300 Urine Ketones 40 Urine Occult Blood LARGE Urine Nitrite NEG Urine Bilirubin NEG Urine Urobilinogen LESS THAN 2.0 Urine Leukocyte Esterase NEG Urine RBC LESS THAN 1 Urine WBC 4 Urine Bacteria OCC Urine Hyaline Casts 10 Urine Mucus FEW Microscopic Urinalysis Comment CATH-CULTURE IND Date/Time Source Procedure Growth Status 11/25/17 18:00 Blood Peripheral Aerobic Blood Culture Pending Received 11/25/17 18:00 Blood Peripheral Anaerobic Blood Culture Pending Received 11/25/17 19:15 Urine Clean Catch Urine Culture Pending Received Result Diagram: 11/25/17 1800 11/25/17 1800 Caprinrhea VTE Risk Assessment Caprini VTE Risk Assessment: No/Low Risk (score <= 1) Caprini Risk Assessment Model Point Value = 1 Point Value = 2 Point Value = 3 Point Value = 5 Age 41-60 Minor surgery BMI > 25 kg/m2 Swollen legs Varicose veins or History of unexplained or recurrent spontaneous Oral contraceptives or hormone replacement Sepsis (< 1 month) Serious lung disease, including pneumonia (< 1 month) Abnormal pulmonary function Acute myocardial infarction Congestive heart failure (< 1 month) History of inflammatory bowel disease Medical patient at bed rest Age 61-74 Arthroscopic surgery Major open surgery (> 45 min) Laparoscopic surgery (> 45 min) Malignancy Confined to bed (> 72 hours) Immobilizing plaster cast Central venous access Age >= 75 History of VTE Family history of VTE Factor V Leiden Prothrombin [id number] Lupus anticoagulant Anticardiolipin antibodies Elevated serum homocysteine Heparin-induced thrombocytopenia Other congenital or acquired thrombophilia Stroke (< 1 month) Elective arthroplasty Hip, pelvis, or leg fracture Acute spinal cord injury (< 1 month) Prophylaxis Regimen Total Risk Factor Score Risk Level Prophylaxis Regimen 0-1 Low Early ambulation 2 Moderate Order ONE of the following: *Sequential Compression Device (SCD) *Heparin 5000 units SQ BID 3-4 Higher Order ONE of the following medications: *Heparin 5000 units SQ TID *Enoxaparin/Lovenox 40 mg SQ daily (WT < 150 kg, CrCl > 30 mL/min) *Enoxaparin/Lovenox 30 mg SQ daily (WT < 150 kg, CrCl > 10-29 mL/min) *Enoxaparin/Lovenox 30 mg SQ BID (WT < 150 kg, CrCl > 30 mL/min) AND/OR *Sequential Compression Device (SCD) 5 or more Highest Order ONE of the following medications: *Heparin 5000 units SQ TID (Preferred with Epidurals) *Enoxaparin/Lovenox 40 mg SQ daily (WT < 150 kg, CrCl > 30 mL/min) *Enoxaparin/Lovenox 30 mg SQ daily (WT < 150 kg, CrCl > 10-29 mL/min) *Enoxaparin/Lovenox 30 mg SQ BID (WT < 150 kg, CrCl > 30 mL/min) AND *Sequential Compression Device (SCD) Assessment and Plan Problem List: (1) Sepsis ICD Code: A41.9 - Sepsis, unspecified organism Status: Acute (2) PNA (pneumonia) ICD Code: J18.9 - Pneumonia, unspecified organism (3) Cat bite ICD Code: W55.01XA - Bitten by cat, initial encounter Status: Acute (4) Hypoxia ICD Code: R09.02 - Hypoxemia (5) UTI (urinary tract infection) ICD Code: N39.0 - Urinary tract infection, site not specified (6) Hyperglycemia ICD Code: R73.9 - Hyperglycemia, unspecified (7) Alcohol abuse ICD Code: F10.10 - Alcohol abuse, uncomplicated Assessment and Plan A/P: 1. Sepsis: HR 106, WBC 14, Lactic Acid 4.8, Source-PNA/UTI/Cellulitis. S/p Blood cultures, Vanc/Zosyn in ER. Follow up cultures, repeat Lactic Acid, IVF for hydration. 2. PNA: CXR w/ RLL PNA, images reviewed by me. Continue w/ IV Abx, DuoNeb, Mucinex, check Sputum Cultures. 3. Hypoxia: O2 sat 86% on RA, monitor O2, continue NC. 4. UTI: U/a w/ UTI, continue w/ IV Abx, IVF for hydration, follow up cultures. 5. Cat Bite: Right 3rd finger erythema/edema, X-ray w/ no acute abnormality. CT pending, will follow up. Continue with IV Abx 6. Alcohol Abuse: w/ Acute Alcohol Intoxication. CIWA, Seizure Precautions, MVT/Thiamine/Folate replacement. 7. DVT Prophylaxis: SCD/Teds. 8. Social work for d/c planning as needed. 9. Case discussed w/ ER physician at length, labs/records/imaging reviewed by me. Physician Certification 2 Midnight Certification Type: Admission for Inpatient Services Order for Inpatient Services The services are ordered in accordance with Medicare regulations or non- Medicare payer requirements, as applicable. In the case of services not specified as inpatient-only, they are appropriately provided as inpatient services in accordance with the 2-midnight benchmark. Estimated LOS (days): 2 days is the estimated time the patient will need to remain in the hospital, assuming treatment plan goals are met and no additional complications. Post-Hospital Plan: Not yet determined Problem Qualifiers (1) Sepsis: Qualified Codes: A41.9 - Sepsis, unspecified organism (2) Cat bite: Qualified Codes: W55.01XA - Bitten by cat, initial encounter Minoo Barrientos MD Nov 25, 2017 21:04
--- NOTE | 2017-11-25 21:08 | RADRPT ---
EXAM DATE/TIME: 11/25/2017 19:49 [facility] COMPARISON: No previous studies available for comparison. INDICATIONS : Right hand pain. Evaluate for osteomyelitis. IV CONTRAST: 75 cc Omnipaque 350 (iohexol) IV RADIATION DOSE: 36.24 CTDIvol (mGy) ; Patient motion MEDICAL HISTORY : Hypertension. SURGICAL HISTORY : Pins in wrist. ENCOUNTER: Initial ACUITY: 1 day PAIN SCALE: 5/10 LOCATION: Right hand TECHNIQUE: Volumetric scanning of the hand was performed. Using automated exposure control and adjustment of th e mA and/or kV according to patient size, radiation dose was kept as low as reasonably achievable to obtain optimal diagnostic quality images. DICOM format image data is available electronically for re view and comparison. FINDINGS: BONES: There is cystic change seen throughout the scaphoid. There appears to be disruption/absence of the la teral cortex of the scaphoid. There is widening of the scapholunate interval measuring up to 5 mm. Th ere is some cystic change at the base of the capitate and at the lateral aspect of the triquetral bon e. There is cystic change of the distal radius. There is narrowing of the radiocarpal joint. There is hypertrophic change of the radiocarpal joint. Hypertrophic change is seen around the distal ulna. Th ere is cystic change at the anterior base of the third metacarpal. SOFT TISSUES: No focal fluid collection is seen. CONCLUSION: Extensive cystic change throughout the hand as described above. There also is hypertrophic change. Th kimmie changes already from chronic arthritic change. Involvement with osteomyelitis cannot be excluded. It is doubtful that given the extensive changes that MR would help make this distinction. One could consider a three-phase bone scan to try to evaluate for osteomyelitis. Gal Gold MD on November 25, 2017 at 21:01 Board Certified Radiologist. This report was verified electronically.
[2017-11-25 22:10] VITALS: BP 165/91; PULSE 108; RESP 20; TEMP 99.2; O2SAT 94
[2017-11-25] MEDS: SODIUM CHLORIDE 0.9% FLUSH 10 ML FLUSH IV FLUSH SCH (22:32)
[2017-11-25] MEDS: SODIUM CHLOR 0.9% 1000 ML INJ 1,000 ML IV SCH (22:32)
[2017-11-25] MEDS: INSULIN ASPART SUPPLEMENTAL SCALE SQ SCH (22:33)
[2017-11-25] MEDS ORDERED: VANCOMYCIN INJ 1,700 MG in SODIUM CHLORID 0.9% 500 ML INJ 500 ML IV ONE (23:00)
[2017-11-25] MEDS ORDERED: THIAMINE INJ 100 MG in SODIUM CHLORIDE 0.9% INJ 100 ML IV ONE (23:00)
[2017-11-26] VITALS (9 sets, daily range): BP systolic 141–178; BP diastolic 78–90; PULSE 62–97; RESP 18–20; TEMP 98–99.7; O2SAT 93–96
[2017-11-26] MEDS: SODIUM CHLOR 0.9% 1000 ML INJ 1,000 ML IV SCH ×2 (05:31→17:19)
[2017-11-26 07:34] LABS: AUTOMATED NEUTROPHIL # 13.7 TH/MM3 (1.8-7.7); BASOPHIL % 0.1 % (0.0-2.0); EOSINOPHIL % 0.1 % (0.0-4.0); HEMATOCRIT 35.8 % (39.0-51.0); HEMOGLOBIN 12.4 GM/DL (13.0-17.0); LYMPH % 3.3 % (9.0-44.0); LYMPHOCYTE # 0.5 TH/MM3 (1.0-4.8); MEAN CELL VOLUME 90.3 FL (80.0-100.0); MEAN CORPUSCULAR HEMOGLOBIN 31.1 PG (27.0-34.0); MEAN CORPUSCULAR HGB CONC 34.5 % (32.0-36.0); MONO % 3.6 % (0.0-8.0); MONOCYTE # 0.5 TH/MM3 (0-0.9); NEUT % 92.9 % (16.0-70.0); PLATELET COUNT 171 TH/MM3 (150-450); RED BLOOD COUNT 3.97 MIL/MM3 (4.50-5.90); RED CELL DISTRIBUTION WIDTH 14.1 % (11.6-17.2); WHITE BLOOD COUNT 14.7 TH/MM3 (4.0-11.0)
[2017-11-26 08:04] LABS: ALBUMIN 2.8 GM/DL (3.4-5.0); AST (GOT) 63 U/L (15-37); BICARBONATE 25.4 MEQ/L (21.0-32.0); BLOOD UREA NITROGEN 10 MG/DL (7-18); CALCIUM 7.7 MG/DL (8.5-10.1); CHLORIDE 102 MEQ/L (98-107); CREATININE 0.56 MG/DL (0.60-1.30); GLOMERULAR FILTRATION RATE 150 ML/MIN (>89); GLUCOSE,RANDOM 147 MG/DL (74-106); SODIUM (NA) 138 MEQ/L (136-145)
[2017-11-26 08:05] LABS: ALKALINE PHOSPHATASE 70 U/L (45-117); ALT (GPT) 44 U/L (12-78); TOTAL BILIRUBIN ADULT 0.8 MG/DL (0.2-1.0); TOTAL PROTEIN 6.4 GM/DL (6.4-8.2)
[2017-11-26] MEDS: INSULIN ASPART SUPPLEMENTAL SCALE SQ SCH ×4 (08:20→22:21)
[2017-11-26] MEDS: guaiFENesin E.R. 600 MG TAB PO SCH (08:50)
[2017-11-26] MEDS: DOCUSATE SODIUM 50 MG/SENNA 8.6 MG TAB PO SCH ×2 (08:50→21:00)
[2017-11-26] MEDS: FOLIC ACID 1 MG TAB PO SCH (08:50)
[2017-11-26] MEDS: MULTIVITAMINS/MINERALS THERAPEUTIC TAB PO SCH (08:50)
[2017-11-26] MEDS: THIAMINE HCL 100 MG TAB PO SCH (08:50)
[2017-11-26] MEDS: CEFEPIME INJ 1,000 MG in SODIUM CHLORIDE 0.9% INJ 100 ML IV SCH (08:51)
[2017-11-26] MEDS: SODIUM CHLORIDE 0.9% FLUSH 10 ML FLUSH IV FLUSH SCH ×2 (08:58→22:21)
--- NOTE | 2017-11-26 09:09 | HHI.PR ---
Subjective Remarks This is a pleasant 57 y/o male with Anxiety disorder, Depression, Alcohol abuse , who was brought in to ER brought in under [place] Act, secondary to Intoxication, he was bitten by a cat on his right hand 2 weeks ago , started on Vancomycin And Zosyn. patient improving condition his new Lactic acid 1.1, continue CIWA protocol. Objective Vital Signs Date Time Temp Pulse Resp B/P (MAP) Pulse Ox O2 Delivery O2 Flow Rate FiO2 11/26/17 07:30 Room Air 11/26/17 07:29 98.7 79 18 178/90 (119) 95 11/26/17 04:00 82 11/26/17 03:19 99.7 82 20 161/78 (105) 93 11/25/17 22:10 99.2 108 20 165/91 (115) 94 11/25/17 21:07 11/25/17 19:28 104 18 159/95 (116) 95 Room Air 11/25/17 17:39 24 11/25/17 17:39 98.1 106 24 159/86 (110) 86 Room Air 11/25/17 17:39 Nasal Cannula 2.00 11/25/17 17:39 86 Room Air 11/25/17 17:37 98.1 106 24 159/86 (110) 86 I/O 11/25/17 11/25/17 11/25/17 11/26/17 11/26/17 11/26/17 07:00 15:00 23:00 07:00 15:00 23:00 Intake Total 2000 ml 1500 ml Balance 2000 ml 1500 ml Intake Oral 1500 ml IV Total 2000 ml Result Diagram: 11/26/17 0658 11/26/17 0658 Imaging Last Impressions Chest X-Ray 11/25/17 1722 Signed Impressions: Service Date/Time: October 18:19 - CONCLUSION: Right base consolidation or atelectasis. Gal Gold MD Upper Extremity CT 11/25/17 0000 Signed Impressions: Service Date/Time: October 19:49 - CONCLUSION: Extensive cystic change throughout the hand as described above. There also is hypertrophic change. These changes already from chronic arthritic change. Involvement with osteomyelitis cannot be excluded. It is doubtful that given the extensive changes that MR would help make this distinction. One could consider a three-phase bone scan to try to evaluate for osteomyelitis. Gal Gold MD Hand X-Ray 11/25/17 0000 Signed Impressions: Service Date/Time: October 18:21 - CONCLUSION: No acute abnormality is seen. There is chronic change as described above. Gal Gold MD Procedures None Other Results Laboratory Tests Test 11/25/17 18:00 11/25/17 19:15 11/26/17 00:40 11/26/17 06:58 Ethyl Alcohol Level 363 MG/DL Urine Color YELLOW Urine Turbidity HAZY Urine pH 5.5 Urine Specific [place] 1.020 Urine Protein 100 mg/dL Urine Glucose (UA) 300 mg/dL Urine Ketones 40 mg/dL Urine Occult Blood LARGE Urine Nitrite NEG Urine Bilirubin NEG Urine Urobilinogen LESS THAN 2.0 MG/DL Urine Leukocyte Esterase NEG Urine RBC LESS THAN 1 /hpf Urine WBC 4 /hpf Urine Bacteria OCC /hpf Urine Hyaline Casts 10 /lpf Urine Mucus FEW /lpf Microscopic Urinalysis Comment CATH-CULTURE IND Lactic Acid Level 3.5 mmol/L White Blood Count 14.7 TH/MM3 Red Blood Count 3.97 MIL/MM3 Hemoglobin 12.4 GM/DL Hematocrit 35.8 % Mean Corpuscular Volume 90.3 FL Mean Corpuscular Hemoglobin 31.1 PG Mean Corpuscular Hemoglobin Concent 34.5 % Red Cell Distribution Width 14.1 % Platelet Count 171 TH/MM3 Mean Platelet Volume 7.0 FL Neutrophils (%) (Auto) 92.9 % Lymphocytes (%) (Auto) 3.3 % Monocytes (%) (Auto) 3.6 % Eosinophils (%) (Auto) 0.1 % Basophils (%) (Auto) 0.1 % Neutrophils # (Auto) 13.7 TH/MM3 Lymphocytes # (Auto) 0.5 TH/MM3 Monocytes # (Auto) 0.5 TH/MM3 Eosinophils # (Auto) 0.0 TH/MM3 Basophils # (Auto) 0.0 TH/MM3 CBC Comment DIFF FINAL Differential Comment Blood Urea Nitrogen 10 MG/DL Creatinine 0.56 MG/DL Random Glucose 147 MG/DL Total Protein 6.4 GM/DL Albumin 2.8 GM/DL Calcium Level 7.7 MG/DL Alkaline Phosphatase 70 U/L Aspartate Amino Transf (AST/SGOT) 63 U/L Alanine Aminotransferase (ALT/SGPT) 44 U/L Total Bilirubin 0.8 MG/DL Sodium Level 138 MEQ/L Potassium Level 3.6 MEQ/L Chloride Level 102 MEQ/L Carbon Dioxide Level 25.4 MEQ/L Anion Gap 11 MEQ/L Estimat Glomerular Filtration Rate 150 ML/MIN Objective Remarks GENERAL: Middle-aged white male in no acute distress. Acutely intoxicated. HEENT: PERRLA, EOMI. No scleral icterus or conjunctival pallor. No lid lag or facial droop. CARDIOVASCULAR: Regular rate and rhythm. No obvious murmurs to auscultation. No chest tenderness to palpation. RESPIRATORY: No obvious rhonchi or wheezing. Clear to auscultation. Breath sounds equal bilaterally. GASTROINTESTINAL: Abdomen soft, non-tender, nondistended. BS normal. MUSCULOSKELETAL: Extremities without clubbing, cyanosis, or edema. No obvious deformities. Right hand third digit with swelling, erythema. NEUROLOGICAL: Awake, alert and oriented x4. No focal neurologic deficits. Moving both upper and lower extremities spontaneously. Medications and IVs Current Medications Medications (Trade) Dose Ordered Sig/Kimberly Route Start Time Stop Time Status Last Admin Pharmacy Profile Note 0 ml @ 0 mls/hr UNSCH OTHER 11/25/17 20:15 Cefepime HCl 1000 mg/Sodium Chloride 100 ml @ 200 mls/hr Q12H IV 11/26/17 09:00 11/26/17 08:51 (Folate) 1 mg DAILY PO 11/26/17 09:00 12/01/17 08:59 11/26/17 08:50 (Vitamin B1) 100 mg DAILY PO 11/26/17 09:00 11/26/17 08:50 (Theragran M Tab) 1 tab DAILY PO 11/26/17 09:00 12/01/17 08:59 11/26/17 08:50 (Romazicon Inj) 0.2 mg Q1M PRN IV PUSH 11/25/17 20:15 (Ativan) 1 mg Q4H PRN PO 11/25/17 20:15 (Ativan Inj) 1 mg Q4H PRN IV PUSH 11/25/17 20:15 (Ativan) 2 mg Q2H PRN PO 11/25/17 20:15 (Ativan Inj) 2 mg Q2H PRN IV PUSH 11/25/17 20:15 (Ativan Inj) 2 mg Q1H PRN IV PUSH 11/25/17 20:15 (Ativan Inj) 2 mg Q15M PRN IV PUSH 11/25/17 20:15 (Haldol Inj) 2 mg Q15M PRN IM 11/25/17 20:15 Sodium Chloride 1,000 ml @ 100 mls/hr Q10H IV 11/25/17 20:09 11/26/17 05:31 (NS Flush) 2 ml UNSCH PRN IV FLUSH 11/25/17 20:15 (NS Flush) 2 ml BID IV FLUSH 11/25/17 21:00 11/25/17 22:32 (Zofran Inj) 4 mg Q6H PRN IVP 11/25/17 20:15 (Tylenol) 650 mg Q6H PRN PO 11/25/17 20:15 (Roxicodone) 10 mg Q4H PRN PO 11/25/17 20:15 11/26/17 08:50 (Roxicodone) 5 mg Q4H PRN PO 11/25/17 20:15 (Lucie-Colace) 1 tab BID PO 11/25/17 21:00 11/26/17 08:50 (Milk Of Magnesia Liq) 30 ml Q12H PRN PO 11/25/17 20:15 (Senokot) 17.2 mg Q12H PRN PO 11/25/17 20:15 (Dulcolax Supp) 10 mg DAILY PRN RECTAL 11/25/17 20:15 (Lactulose Liq) 30 ml DAILY PRN PO 11/25/17 20:15 (D50w (Vial) Inj) 50 ml UNSCH PRN IV PUSH 11/25/17 21:00 (Glucagon Inj) 1 mg UNSCH PRN OTHER 11/25/17 21:00 (NovoLOG SUPPLEMENTAL SCALE) 1 ACHS SLIDING SCALE SQ 11/25/17 21:00 11/25/17 22:33 (Mucinex Er) 600 mg BID PO 11/26/17 09:00 11/26/17 08:50 (Symbicort 160-4.5 Mcg Inh) 2 puff Q12HR INH 11/26/17 09:00 Vancomycin HCl 1750 mg/Sodium Chloride 517.5 ml @ 250 mls/hr Q12H IV 11/26/17 15:00 Miscellaneous Information SPECIFIC LAB TO BE DRAWN:VANCOMYCIN TROUGH DATE TO... ONCE ONCE .XX 11/27/17 14:45 11/27/17 14:46 A/P Assessment and Plan (1) Sepsis ICD Code: A41.9 - Sepsis, unspecified organism Status: Acute (2) PNA (pneumonia) ICD Code: J18.9 - Pneumonia, unspecified organism (3) Cat bite ICD Code: W55.01XA - Bitten by cat, initial encounter Status: Acute (4) Hypoxia ICD Code: R09.02 - Hypoxemia (5) UTI (urinary tract infection) ICD Code: N39.0 - Urinary tract infection, site not specified (6) Hyperglycemia ICD Code: R73.9 - Hyperglycemia, unspecified (7) Alcohol abuse ICD Code: F10.10 - Alcohol abuse, uncomplicated 1. Sepsis: HR 106, WBC 14, Lactic acid today 1.1, has Pneumonia, UTI, Cellulitis, Following, blood cultures, continue Vancomycin and Zosyn IV fluids, 2. PNA: CXR w/ RLL PNA, images reviewed by me. Continue w/ IV Abx, DuoNeb, Mucinex, check Sputum Cultures. 3. Hypoxia: O2 sat 86% on RA, monitor O2, continue NC. 4. UTI: U/a w/ UTI, continue w/ IV Abx, IVF for hydration, follow Urine cultures. 5. Cat Bite: Right 3rd finger erythema/edema, X-ray w/ no acute abnormality. CT recommended three phase bone scan. 6. Alcohol Abuse: w/ Acute Alcohol Intoxication. CIWA, Seizure Precautions, MVT/Thiamine/Folate replacement. DVT Prophylaxis: SCD/Teds. Social work for d/c planning as needed. Discharge Planning not yet clear for discharge. Nakul Munoz MD Nov 26, 2017 09:09
[2017-11-26] MEDS: BUDESONIDE-FORMOTEROL 160/4.5 MCG INHALER INH SCH ×3 (10:00→22:24)
--- NOTE | 2017-11-26 11:25 | EKG ---
Date Performed: 11/25/2017 Time Performed: 18:10:37 PTAGE: 57 years EKG: SINUS TACHYCARDIA MARKED LEFT AXIS DEVIATION INCOMPLETE RIGHT BUNDLE BRANCH BLOCK ABNORMAL ECG PREVIOUS TRACING : 11/21/2017 17.51 Since the previous tracing, no significant change noted DOCTOR: aBsim Hull Interpretating Date/Time 11/26/2017 11:23:55
[2017-11-26] MEDS: VANCOMYCIN INJ 1,750 MG in SODIUM CHLORID 0.9% 500 ML INJ 500 ML IV SCH (15:34)
[2017-11-26 16:39] LABS: HEMOGLOBIN A1C 6.5 % (4.3-6.0)
[2017-11-26] MEDS ORDERED: amLODIPine BESYLATE 5 MG TAB PO ONE (17:45)
[2017-11-27] VITALS (10 sets, daily range): BP systolic 140–183; BP diastolic 68–94; PULSE 63–100; RESP 16–20; TEMP 97.9–98.7; O2SAT 95–96
[2017-11-27] MEDS: guaiFENesin E.R. 600 MG TAB PO SCH ×3 (00:04→21:56)
[2017-11-27] MEDS: INSULIN ASPART SUPPLEMENTAL SCALE SQ SCH ×4 (08:00→21:56)
[2017-11-27] MEDS: THIAMINE HCL 100 MG TAB PO SCH (08:02)
[2017-11-27] MEDS: FOLIC ACID 1 MG TAB PO SCH (08:02)
[2017-11-27] MEDS: MULTIVITAMINS/MINERALS THERAPEUTIC TAB PO SCH (08:02)
[2017-11-27] MEDS: CEFEPIME INJ 1,000 MG in SODIUM CHLORIDE 0.9% INJ 100 ML IV SCH ×2 (08:02→21:57)
[2017-11-27] MEDS: DOCUSATE SODIUM 50 MG/SENNA 8.6 MG TAB PO SCH ×2 (08:03→21:00)
[2017-11-27] MEDS: SODIUM CHLOR 0.9% 1000 ML INJ 1,000 ML IV SCH ×2 (08:03→12:09)
[2017-11-27] MEDS: SODIUM CHLORIDE 0.9% FLUSH 10 ML FLUSH IV FLUSH SCH ×2 (08:03→21:55)
[2017-11-27] MEDS: BUDESONIDE-FORMOTEROL 160/4.5 MCG INHALER INH SCH ×2 (08:03→21:57)
[2017-11-27 12:08] LABS: HEMOGLOBIN A1C 6.6 % (4.3-6.0)
--- NOTE | 2017-11-27 13:51 | RADRPT ---
EXAM DATE/TIME: 11/27/2017 09:04 CORRECTION Corrected on: November 29, 2017; Added Prior Bone Scan [facility] COMPARISON: CT HAND RIGHT W CONTRAST, November 25, 2017, 19:49. HAND RIGHT COMPLETE ([id number]), November 25, 2017, 18:2 1. PRIOR BONE SCANS: No correlative bone scan available for comparison. INDICATIONS : Patient with fever and pain in the right hand. Abnormal CT and plain film exam demonstrating extensiv e apparent degenerative change in the carpus and third metacarpal phalangeal joint.. Patient being ev aluated for osteomyelitis. DOSE: 30.3 mCi Tc99m MDP IV TECHNIQUE: Three phase bone scan of the right hand was performed. MEDICAL HISTORY : Hypertension. SURGICAL HISTORY : Right wrist surgery. ENCOUNTER: Initial ACUITY: 1 day PAIN SCALE: 3/10 LOCATION: Right hand FINDINGS: The radionuclide angiogram demonstrates fairly symmetric blood flow to both hands. The blood pool andrés ges demonstrate mildly increased uptake in the right radiocarpal joint. The delayed bone scan images demonstrate focal areas of moderate to intense uptake involving the radi ocarpal joint and scapholunate joint. There is more moderate uptake involving the third and fourth me tacarpal phalangeal joints. There is also moderate increased uptake left hand involving the first met acarpocarpal joint and radiocarpal joint. CONCLUSION: Areas of abnormal uptake involving the radiocarpal joint, scapholunate joint and thir d and fourth metacarpal phalangeal joints which correspond to areas of severe degenerative change. Esquivel perimposed osteomyelitis is unlikely. Colten Rosado MD on November 27, 2017 at 13:38 Board Certified Radiologist. This report was verified electronically.
[2017-11-27] MEDS ORDERED: PHARMACY ORDERED LAB ONE (14:45)
[2017-11-27] MEDS: VANCOMYCIN INJ 1,750 MG in SODIUM CHLORID 0.9% 500 ML INJ 500 ML IV SCH (15:41)
--- NOTE | 2017-11-27 16:54 | HHI.PR ---
Subjective Remarks This is a pleasant 57 y/o male with Anxiety disorder, Depression, Alcohol abuse , who was brought in to ER brought in under [place] Act, secondary to Intoxication, he was bitten by a cat on his right hand 2 weeks ago , started on Vancomycin And Zosyn. patient improving condition his new Lactic acid 1.1, continue CIWA protocol. 11/27: Seen in his bedroom, ruled out osteomyelitis of the hand, has chronic osteoarthritic changes, no nausea, vomit or diarrhea, will follow CBC, BMP, CXR in am tomorrow will give Ambien at night and if improving in am tomorrow will discharge home. Objective Vital Signs Date Time Temp Pulse Resp B/P (MAP) Pulse Ox O2 Delivery O2 Flow Rate FiO2 11/27/17 16:32 98.5 93 20 166/94 (118) 96 11/27/17 12:13 98.7 76 18 161/82 (108) 95 11/27/17 08:21 98.3 63 18 183/88 (119) 95 11/27/17 08:00 Room Air 11/27/17 02:45 97.9 68 20 140/81 (100) 95 11/26/17 22:53 98.7 67 20 154/79 (104) 96 11/26/17 17:15 62 I/O 11/26/17 11/26/17 11/26/17 11/27/17 11/27/17 11/27/17 07:00 15:00 23:00 07:00 15:00 23:00 Intake Total 1500 ml Balance 1500 ml Intake Oral 1500 ml # Voids 2 Result Diagram: 11/26/17 0658 11/26/17 0658 Imaging Last Impressions Bone Scan Nuclear [facility] 11/27/17 0832 Signed Impressions: Service Date/Time: Monday, November 27, 2017 09:04 - CONCLUSION: Areas of abnormal uptake involving the radiocarpal joint, scapholunate joint and third and fourth metacarpal phalangeal joints which correspond to areas of severe degenerative change. Superimposed osteomyelitis is unlikely. Colten Rosado MD Chest X-Ray 11/25/17 1722 Signed Impressions: Service Date/Time: October 18:19 - CONCLUSION: Right base consolidation or atelectasis. Gal Gold MD Upper Extremity CT 11/25/17 0000 Signed Impressions: Service Date/Time: October 19:49 - CONCLUSION: Extensive cystic change throughout the hand as described above. There also is hypertrophic change. These changes already from chronic arthritic change. Involvement with osteomyelitis cannot be excluded. It is doubtful that given the extensive changes that MR would help make this distinction. One could consider a three-phase bone scan to try to evaluate for osteomyelitis. Gal Gold MD Hand X-Ray 11/25/17 0000 Signed Impressions: Service Date/Time: October 18:21 - CONCLUSION: No acute abnormality is seen. There is chronic change as described above. Gal Gold MD Procedures None Other Results Laboratory Tests Test 11/25/17 18:00 11/25/17 19:15 11/26/17 06:58 11/26/17 10:40 Ethyl Alcohol Level 363 MG/DL Urine Color YELLOW Urine Turbidity HAZY Urine pH 5.5 Urine Specific [place] 1.020 Urine Protein 100 mg/dL Urine Glucose (UA) 300 mg/dL Urine Ketones 40 mg/dL Urine Occult Blood LARGE Urine Nitrite NEG Urine Bilirubin NEG Urine Urobilinogen LESS THAN 2.0 MG/DL Urine Leukocyte Esterase NEG Urine RBC LESS THAN 1 /hpf Urine WBC 4 /hpf Urine Bacteria OCC /hpf Urine Hyaline Casts 10 /lpf Urine Mucus FEW /lpf Microscopic Urinalysis Comment CATH-CULTURE IND White Blood Count 14.7 TH/MM3 Red Blood Count 3.97 MIL/MM3 Hemoglobin 12.4 GM/DL Hematocrit 35.8 % Mean Corpuscular Volume 90.3 FL Mean Corpuscular Hemoglobin 31.1 PG Mean Corpuscular Hemoglobin Concent 34.5 % Red Cell Distribution Width 14.1 % Platelet Count 171 TH/MM3 Mean Platelet Volume 7.0 FL Neutrophils (%) (Auto) 92.9 % Lymphocytes (%) (Auto) 3.3 % Monocytes (%) (Auto) 3.6 % Eosinophils (%) (Auto) 0.1 % Basophils (%) (Auto) 0.1 % Neutrophils # (Auto) 13.7 TH/MM3 Lymphocytes # (Auto) 0.5 TH/MM3 Monocytes # (Auto) 0.5 TH/MM3 Eosinophils # (Auto) 0.0 TH/MM3 Basophils # (Auto) 0.0 TH/MM3 CBC Comment DIFF FINAL Differential Comment Blood Urea Nitrogen 10 MG/DL Creatinine 0.56 MG/DL Random Glucose 147 MG/DL Total Protein 6.4 GM/DL Albumin 2.8 GM/DL Calcium Level 7.7 MG/DL Alkaline Phosphatase 70 U/L Aspartate Amino Transf (AST/SGOT) 63 U/L Alanine Aminotransferase (ALT/SGPT) 44 U/L Total Bilirubin 0.8 MG/DL Sodium Level 138 MEQ/L Potassium Level 3.6 MEQ/L Chloride Level 102 MEQ/L Carbon Dioxide Level 25.4 MEQ/L Anion Gap 11 MEQ/L Estimat Glomerular Filtration Rate 150 ML/MIN Hemoglobin A1c 6.6 % Lactic Acid Level 1.1 mmol/L Test 11/27/17 14:50 Vancomycin Level Trough 1.8 MCG/ML Objective Remarks GENERAL: No acute distress. HEENT: PERRLA, EOMI. No scleral icterus or conjunctival pallor. No lid lag or facial droop. CARDIOVASCULAR: Regular rate and rhythm. No obvious murmurs to auscultation. No chest tenderness to palpation. RESPIRATORY: No obvious rhonchi or wheezing. Clear to auscultation. Breath sounds equal bilaterally. GASTROINTESTINAL: Abdomen soft, non-tender, nondistended. BS normal. MUSCULOSKELETAL: Extremities without clubbing, cyanosis, or edema. No obvious deformities. Right hand third digit improving, erythema. chronic changes. NEUROLOGICAL: Awake, alert and oriented x4. No focal neurologic deficits. Moving both upper and lower extremities spontaneously. Medications and IVs Current Medications Medications (Trade) Dose Ordered Sig/Kimberly Route Start Time Stop Time Status Last Admin Pharmacy Profile Note 0 ml @ 0 mls/hr UNSCH OTHER 11/25/17 20:15 Cefepime HCl 1000 mg/Sodium Chloride 100 ml @ 200 mls/hr Q12H IV 11/26/17 09:00 11/27/17 08:02 (Folate) 1 mg DAILY PO 11/26/17 09:00 12/01/17 08:59 11/27/17 08:02 (Vitamin B1) 100 mg DAILY PO 11/26/17 09:00 11/27/17 08:02 (Theragran M Tab) 1 tab DAILY PO 11/26/17 09:00 12/01/17 08:59 11/27/17 08:02 (Romazicon Inj) 0.2 mg Q1M PRN IV PUSH 11/25/17 20:15 (Ativan) 1 mg Q4H PRN PO 11/25/17 20:15 (Ativan Inj) 1 mg Q4H PRN IV PUSH 11/25/17 20:15 11/27/17 00:04 (Ativan) 2 mg Q2H PRN PO 11/25/17 20:15 (Ativan Inj) 2 mg Q2H PRN IV PUSH 11/25/17 20:15 (Ativan Inj) 2 mg Q1H PRN IV PUSH 11/25/17 20:15 (Ativan Inj) 2 mg Q15M PRN IV PUSH 11/25/17 20:15 (Haldol Inj) 2 mg Q15M PRN IM 11/25/17 20:15 Sodium Chloride 1,000 ml @ 100 mls/hr Q10H IV 11/25/17 20:09 11/27/17 08:03 (NS Flush) 2 ml UNSCH PRN IV FLUSH 11/25/17 20:15 (NS Flush) 2 ml BID IV FLUSH 11/25/17 21:00 11/26/17 22:21 (Zofran Inj) 4 mg Q6H PRN IVP 11/25/17 20:15 11/26/17 11:13 (Tylenol) 650 mg Q6H PRN PO 11/25/17 20:15 (Roxicodone) 10 mg Q4H PRN PO 11/25/17 20:15 11/27/17 13:09 (Roxicodone) 5 mg Q4H PRN PO 11/25/17 20:15 (Lucie-Colace) 1 tab BID PO 11/25/17 21:00 11/26/17 08:50 (Milk Of Magnesia Liq) 30 ml Q12H PRN PO 11/25/17 20:15 (Senokot) 17.2 mg Q12H PRN PO 11/25/17 20:15 (Dulcolax Supp) 10 mg DAILY PRN RECTAL 11/25/17 20:15 (Lactulose Liq) 30 ml DAILY PRN PO 11/25/17 20:15 (D50w (Vial) Inj) 50 ml UNSCH PRN IV PUSH 11/25/17 21:00 (Glucagon Inj) 1 mg UNSCH PRN OTHER 11/25/17 21:00 (NovoLOG SUPPLEMENTAL SCALE) 1 ACHS SLIDING SCALE SQ 11/25/17 21:00 11/26/17 22:21 (Mucinex Er) 600 mg BID PO 11/26/17 09:00 11/27/17 08:02 (Symbicort 160-4.5 Mcg Inh) 2 puff Q12HR INH 11/26/17 09:00 11/26/17 22:24 Vancomycin HCl 1750 mg/Sodium Chloride 517.5 ml @ 250 mls/hr Q12H IV 11/26/17 15:00 11/27/17 15:41 Miscellaneous Information SPECIFIC LAB TO BE DRAWN:VA... ONCE ONCE .XX 11/28/17 14:45 11/28/17 14:46 A/P Assessment and Plan (1) Sepsis ICD Code: A41.9 - Sepsis, unspecified organism Status: Acute (2) PNA (pneumonia) ICD Code: J18.9 - Pneumonia, unspecified organism (3) Cat bite ICD Code: W55.01XA - Bitten by cat, initial encounter Status: Acute (4) Hypoxia ICD Code: R09.02 - Hypoxemia (5) UTI (urinary tract infection) ICD Code: N39.0 - Urinary tract infection, site not specified (6) Hyperglycemia ICD Code: R73.9 - Hyperglycemia, unspecified (7) Alcohol abuse ICD Code: F10.10 - Alcohol abuse, uncomplicated 1. Sepsis: HR 106, WBC 14, Lactic acid today 1.1, has Pneumonia, UTI, Cellulitis, Following, blood cultures, continue Cefepime and Zosyn removed Vancomycin, ruled out Osteomyelitis of the hand. 2. PNA: CXR w/ RLL PNA, follow CXR in am tomorrow if improving will discharge on by mouth medicines, discontinued Vancomycin Blood culture negative 3. Hypoxia: O2 sat 86% on RA on admission now improved. 4. UTI: U/a w/ UTI, continue w/ IV Abx, IVF for hydration, on Zosyn and Cefepime. 5. Cat Bite: Right 3rd finger erythema/edema, X-ray w/ no acute abnormality. CT recommended three phase bone scan. no osteomyelitis. 6. Alcohol Abuse: w/ Acute Alcohol Intoxication. CIWA, Seizure Precautions, MVT/Thiamine/Folate replacement. 7. Tobacco dependence strongly recommended to stop smoking. Nicotine replacement CBC, BMP for am tomorrow CXR in am tomorrow Ambien for Insomnia DVT Prophylaxis: SCD/Teds. Social work for d/c planning as needed. Discharge Planning Expected in am tomorrow. Nakul Munoz MD Nov 27, 2017 16:54
[2017-11-27] MEDS: ZOLPIDEM TARTRATE 5 MG TAB PO PRN (21:56)
[2017-11-28] VITALS (8 sets, daily range): BP systolic 141–174; BP diastolic 68–94; PULSE 67–83; RESP 16–20; TEMP 97.2–98.7; O2SAT 94–100
[2017-11-28] MEDS: SODIUM CHLOR 0.9% 1000 ML INJ 1,000 ML IV SCH (00:55)
[2017-11-28] MEDS: INSULIN ASPART SUPPLEMENTAL SCALE SQ SCH ×3 (08:00→21:00)
[2017-11-28 08:26] LABS: AUTOMATED NEUTROPHIL # 6.8 TH/MM3 (1.8-7.7); BASOPHIL % 0.3 % (0.0-2.0); EOSINOPHIL # 0.2 TH/MM3 (0-0.4); EOSINOPHIL % 2.8 % (0.0-4.0); HEMATOCRIT 38.4 % (39.0-51.0); HEMOGLOBIN 13.3 GM/DL (13.0-17.0); LYMPH % 8.1 % (9.0-44.0); LYMPHOCYTE # 0.7 TH/MM3 (1.0-4.8); MEAN CELL VOLUME 91.3 FL (80.0-100.0); MEAN CORPUSCULAR HEMOGLOBIN 31.7 PG (27.0-34.0); MEAN CORPUSCULAR HGB CONC 34.7 % (32.0-36.0); MEAN PLATELET VOLUME 6.8 FL (7.0-11.0); MONO % 6.6 % (0.0-8.0); MONOCYTE # 0.5 TH/MM3 (0-0.9); NEUT % 82.2 % (16.0-70.0); PLATELET COUNT 155 TH/MM3 (150-450); RED BLOOD COUNT 4.21 MIL/MM3 (4.50-5.90); RED CELL DISTRIBUTION WIDTH 13.9 % (11.6-17.2); WHITE BLOOD COUNT 8.2 TH/MM3 (4.0-11.0)
[2017-11-28 08:50] LABS: BICARBONATE 26.5 MEQ/L (21.0-32.0); CALCIUM 8.3 MG/DL (8.5-10.1); CREATININE 0.55 MG/DL (0.60-1.30)
--- NOTE | 2017-11-28 08:59 | HHI.PR ---
Subjective Remarks This is a pleasant 57 y/o male with Anxiety disorder, Depression, Alcohol abuse , who was brought in to ER brought in under [place], secondary to Intoxication, he was bitten by a cat on his right hand 2 weeks ago , started on Vancomycin And Zosyn. patient improving condition his new Lactic acid 1.1, continue CIWA protocol. 11/27: Seen in his bedroom, ruled out osteomyelitis of the hand, has chronic osteoarthritic changes, no nausea, vomit or diarrhea, will follow CBC, BMP, CXR in am tomorrow will give Ambien at night and if improving in am tomorrow will discharge home. 11/28: In the presence of nurse Miss Ann, no nausea, vomit or diarrhea, as per patient not improving, his WBC count is improved to 8.2 from 14.7 CXR recommended not improving, but I may see he is really improving, Objective Vital Signs Date Time Temp Pulse Resp B/P (MAP) Pulse Ox O2 Delivery O2 Flow Rate FiO2 11/28/17 07:47 82 11/28/17 07:30 98.6 67 20 172/84 (113) 96 11/28/17 03:07 98.7 79 16 143/68 (93) 95 11/27/17 23:04 98.7 68 20 141/68 (92) 95 11/27/17 19:31 75 11/27/17 19:21 98.5 68 16 161/84 (109) 96 11/27/17 16:45 66 11/27/17 16:32 98.5 93 20 166/94 (118) 96 11/27/17 13:45 74 11/27/17 12:13 98.7 76 18 161/82 (108) 95 I/O 11/27/17 11/27/17 11/27/17 11/28/17 11/28/17 11/28/17 07:00 15:00 23:00 07:00 15:00 23:00 Output Total 500 ml Balance -500 ml Output Urine Total 500 ml Result Diagram: 11/28/1717 11/28/17 0717 Imaging Last Impressions Chest X-Ray 11/28/17 0700 Signed Impressions: Service Date/Time: Tuesday, November 28, 2017 08:54 - CONCLUSION: 1. No improvement right lower lobe opacity with no significant residual. 2. Mild blunting of the posterior costophrenic angles most consistent with small effusion. 3. Degenerative changes in both glenohumeral joints right greater than left. Colten Rosado MD Bone Scan Nuclear Medicine 11/27/17 0832 Signed Impressions: Service Date/Time: Monday, November 27, 2017 09:04 - CONCLUSION: Areas of abnormal uptake involving the radiocarpal joint, scapholunate joint and third and fourth metacarpal phalangeal joints which correspond to areas of severe degenerative change. Superimposed osteomyelitis is unlikely. Colten Rosado MD Upper Extremity CT 11/25/17 0000 Signed Impressions: Service Date/Time: October 19:49 - CONCLUSION: Extensive cystic change throughout the hand as described above. There also is hypertrophic change. These changes already from chronic arthritic change. Involvement with osteomyelitis cannot be excluded. It is doubtful that given the extensive changes that MR would help make this distinction. One could consider a three-phase bone scan to try to evaluate for osteomyelitis. Gal Gold MD Hand X-Ray 11/25/17 0000 Signed Impressions: Service Date/Time: October 18:21 - CONCLUSION: No acute abnormality is seen. There is chronic change as described above. Gal Gold MD Procedures None Other Results Laboratory Tests Test 11/25/17 18:00 11/25/17 19:15 11/26/17 06:58 11/26/17 10:40 Ethyl Alcohol Level 363 MG/DL Urine Color YELLOW Urine Turbidity HAZY Urine pH 5.5 Urine Specific [place] 1.020 Urine Protein 100 mg/dL Urine Glucose (UA) 300 mg/dL Urine Ketones 40 mg/dL Urine Occult Blood LARGE Urine Nitrite NEG Urine Bilirubin NEG Urine Urobilinogen LESS THAN 2.0 MG/DL Urine Leukocyte Esterase NEG Urine RBC LESS THAN 1 /hpf Urine WBC 4 /hpf Urine Bacteria OCC /hpf Urine Hyaline Casts 10 /lpf Urine Mucus FEW /lpf Microscopic Urinalysis Comment CATH-CULTURE IND Hemoglobin A1c 6.6 % Blood Urea Nitrogen 10 MG/DL Creatinine 0.56 MG/DL Random Glucose 147 MG/DL Total Protein 6.4 GM/DL Albumin 2.8 GM/DL Calcium Level 7.7 MG/DL Alkaline Phosphatase 70 U/L Aspartate Amino Transf (AST/SGOT) 63 U/L Alanine Aminotransferase (ALT/SGPT) 44 U/L Total Bilirubin 0.8 MG/DL Sodium Level 138 MEQ/L Potassium Level 3.6 MEQ/L Chloride Level 102 MEQ/L Carbon Dioxide Level 25.4 MEQ/L Lactic Acid Level 1.1 mmol/L Test 11/27/17 14:50 11/28/17 07:17 Vancomycin Level Trough 1.8 MCG/ML White Blood Count 8.2 TH/MM3 Red Blood Count 4.21 MIL/MM3 Hemoglobin 13.3 GM/DL Hematocrit 38.4 % Mean Corpuscular Volume 91.3 FL Mean Corpuscular Hemoglobin 31.7 PG Mean Corpuscular Hemoglobin Concent 34.7 % Red Cell Distribution Width 13.9 % Platelet Count 155 TH/MM3 Mean Platelet Volume 6.8 FL Neutrophils (%) (Auto) 82.2 % Lymphocytes (%) (Auto) 8.1 % Monocytes (%) (Auto) 6.6 % Eosinophils (%) (Auto) 2.8 % Basophils (%) (Auto) 0.3 % Neutrophils # (Auto) 6.8 TH/MM3 Lymphocytes # (Auto) 0.7 TH/MM3 Monocytes # (Auto) 0.5 TH/MM3 Eosinophils # (Auto) 0.2 TH/MM3 Basophils # (Auto) 0.0 TH/MM3 CBC Comment DIFF FINAL Differential Comment Blood Urea Nitrogen 8 MG/DL Creatinine 0.55 MG/DL Random Glucose 129 MG/DL Calcium Level 8.3 MG/DL Sodium Level 138 MEQ/L Potassium Level 3.1 MEQ/L Chloride Level 103 MEQ/L Carbon Dioxide Level 26.5 MEQ/L Anion Gap 9 MEQ/L Estimat Glomerular Filtration Rate 153 ML/MIN Objective Remarks GENERAL: No acute distress. HEENT: PERRLA, EOMI. No scleral icterus or conjunctival pallor. No lid lag or facial droop. CARDIOVASCULAR: Regular rate and rhythm. No obvious murmurs to auscultation. No chest tenderness to palpation. RESPIRATORY: No obvious rhonchi or wheezing. Clear to auscultation. Breath sounds equal bilaterally. GASTROINTESTINAL: Abdomen soft, non-tender, nondistended. BS normal. MUSCULOSKELETAL: Extremities without clubbing, cyanosis, or edema. No obvious deformities. Right hand third digit improving, erythema. chronic changes. NEUROLOGICAL: Awake, alert and oriented x4. No focal neurologic deficits. Moving both upper and lower extremities spontaneously. Medications and IVs Current Medications Medications (Trade) Dose Ordered Sig/Kimberly Route Start Time Stop Time Status Last Admin Cefepime HCl 1000 mg/Sodium Chloride 100 ml @ 200 mls/hr Q12H IV 11/26/17 09:00 11/27/17 21:57 (Folate) 1 mg DAILY PO 11/26/17 09:00 12/01/17 08:59 11/27/17 08:02 (Vitamin B1) 100 mg DAILY PO 11/26/17 09:00 11/27/17 08:02 (Theragran M Tab) 1 tab DAILY PO 11/26/17 09:00 12/01/17 08:59 11/27/17 08:02 (Romazicon Inj) 0.2 mg Q1M PRN IV PUSH 11/25/17 20:15 (Ativan) 1 mg Q4H PRN PO 11/25/17 20:15 (Ativan Inj) 1 mg Q4H PRN IV PUSH 11/25/17 20:15 11/27/17 00:04 (Ativan) 2 mg Q2H PRN PO 11/25/17 20:15 (Ativan Inj) 2 mg Q2H PRN IV PUSH 11/25/17 20:15 (Ativan Inj) 2 mg Q1H PRN IV PUSH 11/25/17 20:15 (Ativan Inj) 2 mg Q15M PRN IV PUSH 11/25/17 20:15 (Haldol Inj) 2 mg Q15M PRN IM 11/25/17 20:15 (NS Flush) 2 ml UNSCH PRN IV FLUSH 11/25/17 20:15 (NS Flush) 2 ml BID IV FLUSH 11/25/17 21:00 11/27/17 21:55 (Zofran Inj) 4 mg Q6H PRN IVP 11/25/17 20:15 11/26/17 11:13 (Tylenol) 650 mg Q6H PRN PO 11/25/17 20:15 (Roxicodone) 10 mg Q4H PRN PO 11/25/17 20:15 11/28/17 08:28 (Roxicodone) 5 mg Q4H PRN PO 11/25/17 20:15 (Lucie-Colace) 1 tab BID PO 11/25/17 21:00 11/26/17 08:50 (Milk Of Magnesia Liq) 30 ml Q12H PRN PO 11/25/17 20:15 (Senokot) 17.2 mg Q12H PRN PO 11/25/17 20:15 (Dulcolax Supp) 10 mg DAILY PRN RECTAL 11/25/17 20:15 (Lactulose Liq) 30 ml DAILY PRN PO 11/25/17 20:15 (D50w (Vial) Inj) 50 ml UNSCH PRN IV PUSH 11/25/17 21:00 (Glucagon Inj) 1 mg UNSCH PRN OTHER 11/25/17 21:00 (NovoLOG SUPPLEMENTAL SCALE) 1 ACHS SLIDING SCALE SQ 11/25/17 21:00 11/27/17 21:56 (Mucinex Er) 600 mg BID PO 11/26/17 09:00 11/27/17 21:56 (Symbicort 160-4.5 Mcg Inh) 2 puff Q12HR INH 11/26/17 09:00 11/27/17 21:57 Miscellaneous Information SPECIFIC LAB TO BE DRAWN:[facility]... ONCE ONCE .XX 11/28/17 14:45 11/28/17 14:46 (Norvasc) 10 mg DAILY PO 11/27/17 17:00 11/27/17 17:18 (Ambien) 5 mg HS PRN PO 11/27/17 17:15 11/27/17 21:56 (KCl) 40 meq ONCE ONCE PO 11/28/17 09:00 11/28/17 09:01 UNV (KCl) 40 meq ONCE ONCE PO 11/28/17 11:30 11/28/17 11:31 UNV A/P Assessment and Plan (1) Sepsis ICD Code: A41.9 - Sepsis, unspecified organism Status: Acute (2) PNA (pneumonia) ICD Code: J18.9 - Pneumonia, unspecified organism (3) Cat bite ICD Code: W55.01XA - Bitten by cat, initial encounter Status: Acute (4) Hypoxia ICD Code: R09.02 - Hypoxemia (5) UTI (urinary tract infection) ICD Code: N39.0 - Urinary tract infection, site not specified (6) Hyperglycemia ICD Code: R73.9 - Hyperglycemia, unspecified (7) Alcohol abuse ICD Code: F10.10 - Alcohol abuse, uncomplicated 1. Sepsis: HR 106, WBC 14, Lactic acid today 1.1, has Pneumonia, UTI, Cellulitis, Following, blood cultures, continue Cefepime and Zosyn removed Vancomycin, ruled out Osteomyelitis of the hand. Improved 2. PNA: CXR w/ RLL PNA, follow CXR in am tomorrow if improving will discharge on by mouth medicines, discontinued Vancomycin Blood culture negative as per new CXR no improvement, I read it myself and can see he is improving , both clinically and with Imaging studies. WBC count improved to 8.2 from 14.7 3. Hypoxia: O2 sat 86% on RA on admission now improved. 4. UTI: U/a w/ UTI, continue w/ IV Abx, IVF for hydration, continue Cefepime. 5. Cat Bite: Right 3rd finger erythema/edema, X-ray w/ no acute abnormality. CT recommended three phase bone scan. no osteomyelitis. 6. Alcohol Abuse: w/ Acute Alcohol Intoxication. CIWA, Seizure Precautions, MVT/Thiamine/Folate replacement. 7. Tobacco dependence strongly recommended to stop smoking. Nicotine replacement 8. electrolyte derangement Potassium 3.1 giving 80 meq of potassium chloride, follow in am tomorrow for discharge. DVT Prophylaxis: SCD/Teds. Social work for d/c planning as needed. Discharge Planning Expected in am tomorrow. Nakul Munoz MD Nov 28, 2017 08:59
[2017-11-28] MEDS: DOCUSATE SODIUM 50 MG/SENNA 8.6 MG TAB PO SCH ×2 (09:00→21:00)
[2017-11-28] MEDS ORDERED: POTASSIUM CHLORIDE 20 MEQ CONTROLLED RELEASE TAB PO ONE ×2 (09:00→11:30)
--- NOTE | 2017-11-28 09:10 | RADRPT ---
EXAM DATE/TIME: 11/28/2017 08:54 [facility] COMPARISON: CHEST SINGLE AP, November 25, 2017, 18:19. INDICATIONS : Shortness of breath and cough for four days. MEDICAL HISTORY : Hypertension. SURGICAL HISTORY : Right wrist surgery. ENCOUNTER: Subsequent ACUITY: 4 - 6 days PAIN SCORE: 0/10 LOCATION: Bilateral chest FINDINGS: PA and lateral views of the chest were obtained and demonstrated interval improvement in the previous ly noted right lower lobe opacity with no residual confluent infiltrate. On the lateral examination t here is mild blunting of one of the posterior costophrenic angles. The heart size is within normal li mits. The bony thorax is stable with degenerative changes in both glenohumeral joints right greater t paredes left. There is no perihilar edema. CONCLUSION: 1. No improvement right lower lobe opacity with no significant residual. 2. Mild blunting of the posterior costophrenic angles most consistent with small effusion. 3. Degenerative changes in both glenohumeral joints right greater than left. Colten Rosado MD on November 28, 2017 at 9:06 Board Certified Radiologist. This report was verified electronically.
[2017-11-28] MEDS: MULTIVITAMINS/MINERALS THERAPEUTIC TAB PO SCH (09:27)
[2017-11-28] MEDS: THIAMINE HCL 100 MG TAB PO SCH (09:27)
[2017-11-28] MEDS: guaiFENesin E.R. 600 MG TAB PO SCH ×2 (09:27→21:51)
[2017-11-28] MEDS: FOLIC ACID 1 MG TAB PO SCH (09:27)
[2017-11-28] MEDS: CEFEPIME INJ 1,000 MG in SODIUM CHLORIDE 0.9% INJ 100 ML IV SCH ×2 (09:28→21:46)
[2017-11-28] MEDS: BUDESONIDE-FORMOTEROL 160/4.5 MCG INHALER INH SCH ×2 (09:28→21:55)
[2017-11-28] MEDS: SODIUM CHLORIDE 0.9% FLUSH 10 ML FLUSH IV FLUSH SCH ×2 (09:29→21:56)
[2017-11-28] MEDS ORDERED: PHARMACY ORDERED LAB ONE (14:45)
[2017-11-28] MEDS ORDERED: LORazepam 2 MG/ML VIAL IV PUSH PRN (15:15)
[2017-11-28] MEDS ORDERED: AZITHROMYCIN INJ 500 MG in SODIUM CHLOR 0.9% 250 ML INJ 250 ML IV SCH (16:00)
[2017-11-28] MEDS: NICOTINE 14 MG/24 HR PATCH T-DERMAL SCH (17:30)
[2017-11-28] MEDS ORDERED: REMOVE OLD PATCH T-DERMAL SCH (21:00)
[2017-11-28] MEDS: ZOLPIDEM TARTRATE 5 MG TAB PO PRN (21:50)
[2017-11-28] MEDS: MAGNESIUM OXIDE 400 MG TAB PO SCH (21:51)
[2017-11-29 04:00] VITALS: BP 158/97; PULSE 85; RESP 18; TEMP 97.7; O2SAT 95
[2017-11-29 05:10] VITALS: PULSE 72
--- NOTE | 2017-11-29 07:56 | HHI.PR ---
Subjective Remarks This is a pleasant 57 y/o male with Anxiety disorder, Depression, Alcohol abuse , who was brought in to ER brought in under [place] Act, secondary to Intoxication, he was bitten by a cat on his right hand 2 weeks ago , started on Vancomycin And Zosyn. patient improving condition his new Lactic acid 1.1, continue CIWA protocol. 11/27: Seen in his bedroom, ruled out osteomyelitis of the hand, has chronic osteoarthritic changes, no nausea, vomit or diarrhea, will follow CBC, BMP, CXR in am tomorrow will give Ambien at night and if improving in am tomorrow will discharge home. 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 Objective Vital Signs Date Time Temp Pulse Resp B/P (MAP) Pulse Ox O2 Delivery O2 Flow Rate FiO2 11/29/17 05:10 72 11/29/17 04:00 97.7 85 18 158/97 (117) 95 11/29/17 03:56 18 11/28/17 23:51 98.1 83 20 156/83 (107) 94 11/28/17 20:00 98.5 78 18 152/77 (102) 94 11/28/17 20:00 76 11/28/17 16:00 97.9 78 17 141/77 (98) 100 11/28/17 13:24 97.2 72 18 174/92 (119) 96 11/28/17 12:42 98.4 78 18 168/94 (118) 95 I/O 11/28/17 11/28/17 11/28/17 11/29/17 11/29/17 11/29/17 07:00 15:00 23:00 07:00 15:00 23:00 Intake Total 350 ml 480 ml Balance 350 ml 480 ml Intake Oral 480 ml IV Total 350 ml # Voids 3 6 # Bowel Movements 0 Result Diagram: 11/28/17 0717 11/28/17 0717 Imaging Last Impressions Chest X-Ray 11/28/17 0700 Signed Impressions: Service Date/Time: Tuesday, November 28, 2017 08:54 - CONCLUSION: 1. No improvement right lower lobe opacity with no significant residual. 2. Mild blunting of the posterior costophrenic angles most consistent with small effusion. 3. Degenerative changes in both glenohumeral joints right greater than left. Colten Rosado MD Bone Scan Nuclear Medicine 11/27/17 0832 Signed Impressions: Service Date/Time: Monday, November 27, 2017 09:04 - CONCLUSION: Areas of abnormal uptake involving the radiocarpal joint, scapholunate joint and third and fourth metacarpal phalangeal joints which correspond to areas of severe degenerative change. Superimposed osteomyelitis is unlikely. Colten Rosado MD Upper Extremity CT 11/25/17 0000 Signed Impressions: Service Date/Time: October 19:49 - CONCLUSION: Extensive cystic change throughout the hand as described above. There also is hypertrophic change. These changes already from chronic arthritic change. Involvement with osteomyelitis cannot be excluded. It is doubtful that given the extensive changes that MR would help make this distinction. One could consider a three-phase bone scan to try to evaluate for osteomyelitis. Gal Gold MD Hand X-Ray 11/25/17 0000 Signed Impressions: Service Date/Time: October 18:21 - CONCLUSION: No acute abnormality is seen. There is chronic change as described above. Gal Gold MD Procedures None Other Results Laboratory Tests Test 11/25/17 18:00 11/25/17 19:15 11/26/17 06:58 11/26/17 10:40 Ethyl Alcohol Level 363 MG/DL Urine Color YELLOW Urine Turbidity HAZY Urine pH 5.5 Urine Specific [place] 1.020 Urine Protein 100 mg/dL Urine Glucose (UA) 300 mg/dL Urine Ketones 40 mg/dL Urine Occult Blood LARGE Urine Nitrite NEG Urine Bilirubin NEG Urine Urobilinogen LESS THAN 2.0 MG/DL Urine Leukocyte Esterase NEG Urine RBC LESS THAN 1 /hpf Urine WBC 4 /hpf Urine Bacteria OCC /hpf Urine Hyaline Casts 10 /lpf Urine Mucus FEW /lpf Microscopic Urinalysis Comment CATH-CULTURE IND Hemoglobin A1c 6.6 % Blood Urea Nitrogen 10 MG/DL Creatinine 0.56 MG/DL Random Glucose 147 MG/DL Total Protein 6.4 GM/DL Albumin 2.8 GM/DL Calcium Level 7.7 MG/DL Alkaline Phosphatase 70 U/L Aspartate Amino Transf (AST/SGOT) 63 U/L Alanine Aminotransferase (ALT/SGPT) 44 U/L Total Bilirubin 0.8 MG/DL Sodium Level 138 MEQ/L Potassium Level 3.6 MEQ/L Chloride Level 102 MEQ/L Carbon Dioxide Level 25.4 MEQ/L Lactic Acid Level 1.1 mmol/L Test 11/27/17 14:50 11/28/17 07:17 11/29/17 06:00 Vancomycin Level Trough 1.8 MCG/ML White Blood Count 8.2 TH/MM3 Red Blood Count 4.21 MIL/MM3 Hemoglobin 13.3 GM/DL Hematocrit 38.4 % Mean Corpuscular Volume 91.3 FL Mean Corpuscular Hemoglobin 31.7 PG Mean Corpuscular Hemoglobin Concent 34.7 % Red Cell Distribution Width 13.9 % Platelet Count 155 TH/MM3 Mean Platelet Volume 6.8 FL Neutrophils (%) (Auto) 82.2 % Lymphocytes (%) (Auto) 8.1 % Monocytes (%) (Auto) 6.6 % Eosinophils (%) (Auto) 2.8 % Basophils (%) (Auto) 0.3 % Neutrophils # (Auto) 6.8 TH/MM3 Lymphocytes # (Auto) 0.7 TH/MM3 Monocytes # (Auto) 0.5 TH/MM3 Eosinophils # (Auto) 0.2 TH/MM3 Basophils # (Auto) 0.0 TH/MM3 CBC Comment DIFF FINAL Differential Comment Blood Urea Nitrogen 8 MG/DL Creatinine 0.55 MG/DL Random Glucose 129 MG/DL Calcium Level 8.3 MG/DL Sodium Level 138 MEQ/L Potassium Level 3.1 MEQ/L Chloride Level 103 MEQ/L Carbon Dioxide Level 26.5 MEQ/L Anion Gap 9 MEQ/L Estimat Glomerular Filtration Rate 153 ML/MIN Magnesium Level 1.8 MG/DL Objective Remarks GENERAL: No acute distress. HEENT: PERRLA, EOMI. No scleral icterus or conjunctival pallor. No lid lag or facial droop. CARDIOVASCULAR: Regular rate and rhythm. No obvious murmurs to auscultation. No chest tenderness to palpation. RESPIRATORY: Clear to auscultation bilateral, no wheezing or crackles. GASTROINTESTINAL: Abdomen soft, non-tender, nondistended. BS normal. MUSCULOSKELETAL: Extremities without clubbing, cyanosis, or edema. No obvious deformities. Right hand third digit improving, erythema. chronic changes. NEUROLOGICAL: Awake, alert and oriented x4. No focal neurologic deficits. Moving both upper and lower extremities spontaneously. Medications and IVs Current Medications Medications (Trade) Dose Ordered Sig/Kimberly Route Start Time Stop Time Status Last Admin Cefepime HCl 1000 mg/Sodium Chloride 100 ml @ 200 mls/hr Q12H IV 11/26/17 09:00 11/28/17 21:46 (Folate) 1 mg DAILY PO 11/26/17 09:00 12/01/17 08:59 11/28/17 09:27 (Vitamin B1) 100 mg DAILY PO 11/26/17 09:00 11/28/17 09:27 (Theragran M Tab) 1 tab DAILY PO 11/26/17 09:00 12/01/17 08:59 11/28/17 09:27 (Romazicon Inj) 0.2 mg Q1M PRN IV PUSH 11/25/17 20:15 (Haldol Inj) 2 mg Q15M PRN IM 11/25/17 20:15 (NS Flush) 2 ml UNSCH PRN IV FLUSH 11/25/17 20:15 (NS Flush) 2 ml BID IV FLUSH 11/25/17 21:00 11/28/17 21:56 (Zofran Inj) 4 mg Q6H PRN IVP 11/25/17 20:15 11/26/17 11:13 (Tylenol) 650 mg Q6H PRN PO 11/25/17 20:15 (Roxicodone) 10 mg Q4H PRN PO 11/25/17 20:15 11/29/17 06:37 (Roxicodone) 5 mg Q4H PRN PO 11/25/17 20:15 (Lucie-Colace) 1 tab BID PO 11/25/17 21:00 11/26/17 08:50 (Milk Of Magnesia Liq) 30 ml Q12H PRN PO 11/25/17 20:15 (Senokot) 17.2 mg Q12H PRN PO 11/25/17 20:15 (Dulcolax Supp) 10 mg DAILY PRN RECTAL 11/25/17 20:15 (Lactulose Liq) 30 ml DAILY PRN PO 11/25/17 20:15 (D50w (Vial) Inj) 50 ml UNSCH PRN IV PUSH 11/25/17 21:00 (Glucagon Inj) 1 mg UNSCH PRN OTHER 11/25/17 21:00 (NovoLOG SUPPLEMENTAL SCALE) 1 ACHS SLIDING SCALE SQ 11/25/17 21:00 11/28/17 17:25 (Mucinex Er) 600 mg BID PO 11/26/17 09:00 11/28/17 21:51 (Symbicort 160-4.5 Mcg Inh) 2 puff Q12HR INH 11/26/17 09:00 11/28/17 21:55 (Norvasc) 10 mg DAILY PO 11/27/17 17:00 11/28/17 09:27 (Ambien) 5 mg HS PRN PO 11/27/17 17:15 11/28/17 21:50 Azithromycin 500 mg/Sodium Chloride 250 ml @ 250 mls/hr Q24H IV 11/28/17 16:00 11/28/17 16:29 (Ativan Inj) 1 mg Q4H PRN IV PUSH 11/28/17 15:15 (Mag-Ox) 400 mg Q12HR PO 11/28/17 21:00 11/28/17 21:51 (Habitrol 14 Mg Patch.24 Hr) 1 patch DAILY T-DERMAL 11/28/17 17:15 11/28/17 17:30 Miscellaneous Information 1 DAILY T-DERMAL 11/29/17 09:00 A/P Assessment and Plan (1) Sepsis ICD Code: A41.9 - Sepsis, unspecified organism Status: Acute (2) PNA (pneumonia) ICD Code: J18.9 - Pneumonia, unspecified organism (3) Cat bite ICD Code: W55.01XA - Bitten by cat, initial encounter Status: Acute (4) Hypoxia ICD Code: R09.02 - Hypoxemia (5) UTI (urinary tract infection) ICD Code: N39.0 - Urinary tract infection, site not specified (6) Hyperglycemia ICD Code: R73.9 - Hyperglycemia, unspecified (7) Alcohol abuse ICD Code: F10.10 - Alcohol abuse, uncomplicated 1. Sepsis: HR 106, WBC 14, Lactic acid today 1.1, has Pneumonia, UTI, Cellulitis, Following, blood cultures, continue Cefepime and Zosyn removed Vancomycin, ruled out Osteomyelitis of the hand. Improved 2. PNA: CXR w/ RLL PNA, follow CXR in am tomorrow if improving will discharge on by mouth medicines, discontinued Vancomycin Blood culture negative as per new CXR no improvement, I read it myself and can see he is improving , both clinically and with Imaging studies. WBC count improved to 8.2 from 14.7 will discharge on Levaquin 750 mg daily for seven more days and Azithromycin 500 mg daily for five more days. 3. Hypoxia: O2 sat 86% on RA on admission now improved. 4. UTI: U/a w/ UTI, continue w/ IV Abx, IVF for hydration, continue Levaquin as outpatient has Positive E coli sensitive to multiple antibiotics. 5. Cat Bite: Right 3rd finger erythema/edema, X-ray w/ no acute abnormality. CT recommended three phase bone scan. no osteomyelitis. has Multiple Osteoarthritic changes on both hands, with proximal joint deformity. 6. Alcohol Abuse: w/ Acute Alcohol Intoxication. CIWA, Seizure Precautions, MVT/Thiamine/Folate replacement. 7. Tobacco dependence strongly recommended to stop smoking. Nicotine replacement 8. electrolyte derangement Potassium now 3.7 giving 20 mg of Potassium chloride replaced 9. COPD I suspect early COPD due to chronic Tobacco dependence, strongly recommended to stop smoking, giving Nicotine replacement, Symbicort Mucinex, no need for oxygen at this time, but has Poor assistant terminal manager prognosis if continue Tobacco dependence. DVT Prophylaxis: SCD/Teds. Discharge Planning Discharge Home today. Nakul Munoz MD Nov 29, 2017 07:56
[2017-11-29 08:00] VITALS: BP 126/84; PULSE 73; RESP 18; TEMP 98; O2SAT 94
[2017-11-29] MEDS: INSULIN ASPART SUPPLEMENTAL SCALE SQ SCH ×2 (08:58→11:33)
[2017-11-29] MEDS: NICOTINE 14 MG/24 HR PATCH T-DERMAL SCH (08:59)
[2017-11-29] MEDS ORDERED: REMOVE OLD PATCH T-DERMAL SCH (09:00)
[2017-11-29] MEDS: DOCUSATE SODIUM 50 MG/SENNA 8.6 MG TAB PO SCH (09:00)
[2017-11-29] MEDS ORDERED: HYDROCHLOROTHIAZIDE 12.5 MG CAP PO SCH (09:00)
[2017-11-29] MEDS: CEFEPIME INJ 1,000 MG in SODIUM CHLORIDE 0.9% INJ 100 ML IV SCH (09:01)
[2017-11-29] MEDS: MULTIVITAMINS/MINERALS THERAPEUTIC TAB PO SCH (09:10)
[2017-11-29] MEDS: THIAMINE HCL 100 MG TAB PO SCH (09:10)
[2017-11-29] MEDS: guaiFENesin E.R. 600 MG TAB PO SCH (09:10)
[2017-11-29] MEDS: FOLIC ACID 1 MG TAB PO SCH (09:10)
[2017-11-29] MEDS: MAGNESIUM OXIDE 400 MG TAB PO SCH (09:11)
[2017-11-29] MEDS: SODIUM CHLORIDE 0.9% FLUSH 10 ML FLUSH IV FLUSH SCH (09:13)
[2017-11-29] MEDS: BUDESONIDE-FORMOTEROL 160/4.5 MCG INHALER INH SCH (09:14)
[2017-11-29] MEDS ORDERED: NICO14DI23 T-DERMAL (10:00)
[2017-11-29] MEDS ORDERED: Budeson-Formot 160-4.5 Mcg Inh INH (10:00)
[2017-11-29] MEDS ORDERED: AMLO10 PO (10:00)
[2017-11-29] MEDS ORDERED: FOLI1TAB6 PO (10:00)
[2017-11-29] MEDS ORDERED: THERM PO (10:00)
[2017-11-29] MEDS ORDERED: THIA100 PO (10:00)
[2017-11-29] MEDS ORDERED: POTASSIUM CHLORIDE 20 MEQ CONTROLLED RELEASE TAB PO ONE (10:00)
[2017-11-29] MEDS ORDERED: HYDR12.57 PO (10:00)
[2017-11-29] MEDS ORDERED: MAGN400T2 PO (10:00)
[2017-11-29] MEDS ORDERED: OXYC-392 PO (10:00)
[2017-11-29] MEDS ORDERED: guaiFENesin ER PO (10:00)
[2017-11-29] MEDS ORDERED: AZIT500I PO (10:03)
[2017-11-29] MEDS ORDERED: LEVA750T9 PO (10:03)
--- NOTE | 2017-11-29 10:19 | HHI.DS ---
Discharge Summary Admission Date Nov 25, 2017 at 20:12 Discharge Date: Nov 29, 2017 Admitting Diagnosis sepsis, pneumonia, hypoxia, cellulitis, alcohol intoxication (1) Sepsis ICD Code: A41.9 - Sepsis, unspecified organism Diagnosis: Principal Status: Acute (2) PNA (pneumonia) ICD Code: J18.9 - Pneumonia, unspecified organism Diagnosis: Principal (3) Cat bite ICD Code: W55.01XA - Bitten by cat, initial encounter Diagnosis: Principal Status: Acute (4) Hypoxia ICD Code: R09.02 - Hypoxemia Diagnosis: Principal (5) UTI (urinary tract infection) ICD Code: N39.0 - Urinary tract infection, site not specified Diagnosis: Principal (6) Alcohol abuse ICD Code: F10.10 - Alcohol abuse, uncomplicated Diagnosis: Principal (7) Diabetes mellitus ICD Code: E11.9 - Type 2 diabetes mellitus without complications Diagnosis: Principal Procedures None Brief History - From Admission This is a 57-year-old male with a PMH of Anxiety, Depression, Alcohol Abuse was brought to the ER by EMS under [employer] secondary to intoxication. Pt also notes being bitten by a cat to right hand approx 2 wks ago. Pt very poor historian in light of acute intoxication. On arrival, BP 159/86, HR 106, O2 sat 86% on RA, Afebrile. WBC 14.1. Chemistry unremarkable except for BUN 21, GFR 83, BS 261. Lactic Acid 4.8. CXR with right base consolidation. Hand X- ray with no acute findings. S/p Zosyn/Vanc in ER. CBC/BMP: 11/28/17 0717 11/29/17 0600 Significant Findings Laboratory Tests Test 11/26/17 10:40 11/27/17 14:50 11/28/17 07:17 11/29/17 06:00 Vancomycin Level Trough 1.8 MCG/ML (5.0-10.0) Red Blood Count 4.21 MIL/MM3 (4.50-5.90) Hematocrit 38.4 % (39.0-51.0) Mean Platelet Volume 6.8 FL (7.0-11.0) Neutrophils (%) (Auto) 82.2 % (16.0-70.0) Lymphocytes (%) (Auto) 8.1 % (9.0-44.0) Lymphocytes # (Auto) 0.7 TH/MM3 (1.0-4.8) Creatinine 0.55 MG/DL (0.60-1.30) Random Glucose 129 MG/DL (74-106) Calcium Level 8.3 MG/DL (8.5-10.1) Potassium Level 3.1 MEQ/L (3.5-5.1) Imaging Last Impressions Chest X-Ray 11/28/17 0700 Signed Impressions: Service Date/Time: Tuesday, November 28, 2017 08:54 - CONCLUSION: 1. No improvement right lower lobe opacity with no significant residual. 2. Mild blunting of the posterior costophrenic angles most consistent with small effusion. 3. Degenerative changes in both glenohumeral joints right greater than left. Colten Rosado MD Bone Scan Nuclear Medicine 11/27/17 0832 Signed Impressions: Service Date/Time: Monday, November 27, 2017 09:04 - CONCLUSION: Areas of abnormal uptake involving the radiocarpal joint, scapholunate joint and third and fourth metacarpal phalangeal joints which correspond to areas of severe degenerative change. Superimposed osteomyelitis is unlikely. Colten Rosado MD Upper Extremity CT 11/25/17 0000 Signed Impressions: Service Date/Time: October 19:49 - CONCLUSION: Extensive cystic change throughout the hand as described above. There also is hypertrophic change. These changes already from chronic arthritic change. Involvement with osteomyelitis cannot be excluded. It is doubtful that given the extensive changes that MR would help make this distinction. One could consider a three-phase bone scan to try to evaluate for osteomyelitis. Gal Gold MD Hand X-Ray 11/25/17 0000 Signed Impressions: Service Date/Time: October 18:21 - CONCLUSION: No acute abnormality is seen. There is chronic change as described above. Gal Gold MD PE at Discharge GENERAL: No acute distress. HEENT: PERRLA, EOMI. No scleral icterus or conjunctival pallor. No lid lag or facial droop. CARDIOVASCULAR: Regular rate and rhythm. No obvious murmurs to auscultation. No chest tenderness to palpation. RESPIRATORY: Clear to auscultation bilateral, no wheezing or crackles. GASTROINTESTINAL: Abdomen soft, non-tender, nondistended. BS normal. MUSCULOSKELETAL: Extremities without clubbing, cyanosis, or edema. No obvious deformities. Right hand third digit improving, erythema. chronic changes. NEUROLOGICAL: Awake, alert and oriented x4. No focal neurologic deficits. Moving both upper and lower extremities spontaneously. Hospital Course This is a pleasant 57 y/o male with Anxiety disorder, Depression, Alcohol abuse , who was brought in to ER brought in under [employer], secondary to Intoxication, he was bitten by a cat on his right hand 2 weeks ago , started on Vancomycin And Zosyn. patient improving condition his new Lactic acid 1.1, continue CIWA protocol. 11/27: Seen in his bedroom, ruled out osteomyelitis of the hand, has chronic osteoarthritic changes, no nausea, vomit or diarrhea, will follow CBC, BMP, CXR in am tomorrow will give Ambien at night and if improving in am tomorrow will discharge home. 11/28: In the presence of nurse Miss Ann, as per patient not improving, his WBC count is improved to 8.2 from 14.7 11/29: Seen in the presence of nurse Miss Benavidez, stable, talking in complete sentences, will need to continue Bronchodilator, Mucolytic and antibiotics, Azithromycin and Levaquin to complete seven days more, is afebrile , improved his leukocytosis, will need to follow with PCP to check Pulmonary improvement as outpatient, also to titrate his blood pressure medicines, Poor group home prognosis if continue smoking, at this time does not need oxygen, but is worsening his COPD. Assessment and Plan (1) Sepsis ICD Code: A41.9 - Sepsis, unspecified organism Status: Acute (2) PNA (pneumonia) ICD Code: J18.9 - Pneumonia, unspecified organism (3) Cat bite ICD Code: W55.01XA - Bitten by cat, initial encounter Status: Acute (4) Hypoxia ICD Code: R09.02 - Hypoxemia (5) UTI (urinary tract infection) ICD Code: N39.0 - Urinary tract infection, site not specified (6) Hyperglycemia ICD Code: R73.9 - Hyperglycemia, unspecified (7) Alcohol abuse ICD Code: F10.10 - Alcohol abuse, uncomplicated 1. Sepsis: HR 106, WBC 14, Lactic acid today 1.1, has Pneumonia, UTI, Cellulitis, Following, blood cultures, continue Cefepime and Zosyn removed Vancomycin, ruled out Osteomyelitis of the hand. Improved 2. PNA: CXR w/ RLL PNA, follow CXR in am tomorrow if improving will discharge on by mouth medicines, discontinued Vancomycin Blood culture negative as per new CXR no improvement, I read it myself and can see he is improving , both clinically and with Imaging studies. WBC count improved to 8.2 from 14.7 will discharge on Levaquin 750 mg daily for seven more days and Azithromycin 500 mg daily for five more days. 3. Hypoxia: O2 sat 86% on RA on admission now improved. 4. UTI: U/a w/ UTI, continue w/ IV Abx, IVF for hydration, continue Levaquin as outpatient has Positive E coli sensitive to multiple antibiotics. 5. Cat Bite: Right 3rd finger erythema/edema, X-ray w/ no acute abnormality. CT recommended three phase bone scan. no osteomyelitis. has Multiple Osteoarthritic changes on both hands, with proximal joint deformity. 6. Alcohol Abuse: w/ Acute Alcohol Intoxication. CIWA, Seizure Precautions, MVT/Thiamine/Folate replacement. 7. Tobacco dependence strongly recommended to stop smoking. Nicotine replacement 8. electrolyte derangement Potassium now 3.7 giving 20 mg of Potassium chloride replaced 9. COPD I suspect early COPD due to chronic Tobacco dependence, strongly recommended to stop smoking, giving Nicotine replacement, Symbicort Mucinex, no need for oxygen at this time, but has Poor group home prognosis if continue Tobacco dependence. 10. Diabetes Mellitus II patient is having controlled values with diet, will need to follow with PCP to start him on Metformin if indicated, he had in the past Hypoglycemia related to Medicines, will need close control, due to that sometimes he is not eating properly. DVT Prophylaxis: SCD/Teds. Discharge Planning Discharge Home today. Pt Condition on Discharge: Good Discharge Disposition: Discharge Home Discharge Time: > 30 minutes Discharge Instructions DIET: Follow Instructions for: Heart Healthy Diet Activities you can perform: Regular-No Restrictions Nakul Munoz MD Nov 29, 2017 10:19
[2017-11-29] MEDS ORDERED: AZITHROMYCIN 250 MG TAB PO SCH (16:00)
== END 2017-11-29 13:29 | disposition home or self-care (01) | DRG 871 ==
LOC: NEPD 17:02 → NEDA 20:12 → NEPGCP 21:04 → NEDH 11-26 11:26 → NEPGCP 11-26 11:28 → N07A 11-28 13:11
PROVIDERS: ADMIT Internal Medicine; ATTEND Internal Medicine
DX: A41.9 Sepsis, unspecified organism (principal); J18.1 Lobar pneumonia, unspecified organism; J44.0 Chronic obstructive pulmonary disease with (acute) lower respiratory infection; L03.113 Cellulitis of right upper limb; N39.0 Urinary tract infection, site not specified; E11.65 Type 2 diabetes mellitus with hyperglycemia; S61.451A Open bite of right hand, initial encounter; F10.129 Alcohol abuse with intoxication, unspecified; R09.02 Hypoxemia; F32.9 Major depressive disorder, single episode, unspecified; F41.9 Anxiety disorder, unspecified; G47.00 Insomnia, unspecified; J44.9 Chronic obstructive pulmonary disease, unspecified; B96.20 Unspecified Escherichia coli [E. coli] as the cause of diseases classified elsewhere; F17.210 Nicotine dependence, cigarettes, uncomplicated; W55.01XA Bitten by cat, initial encounter; Y90.8 Blood alcohol level of 240 mg/100 ml or more
CPT/HCPCS: 71045; 71046; 73130; 73201; 78315; 80048; 80053; 80202; 80307; 81001; 82948; 83036; 83605; 83735; 84132; 85025; 87040; 87086; 93005; 96360; 96361; A9503; J0456; J0692; J1815; J2060; J2405; J2543; J3370; J3411; J7030; J7040; J7050; Q9967